=== PATIENT | male | born 1960 | race Caucasian/White ===

== ENCOUNTER 2016-12-07 06:16 | Inpatient (IN) | payer BC ==
[~2016-12-07] VITALS: Ht 180.3 cm; Wt 102.5 kg
[2016-12-07] VITALS (21 sets, daily range): BP systolic 116–163; BP diastolic 67–110; PULSE 16–122; RESP 18–20; TEMP 97.4–98; O2SAT 95–99
[2016-12-07] MEDS ORDERED: LEVO.075 PO (06:58)
[2016-12-07] MEDS ORDERED: SITA1TAB2 PO (06:58)
[2016-12-07] MEDS ORDERED: RAMI5CAP PO (06:58)
[2016-12-07] MEDS ORDERED: METF1000 PO ×2 (06:58)
[2016-12-07] MEDS ORDERED: ASPI325T PO (06:58)
[2016-12-07] MEDS ORDERED: SIMV40TA PO (06:58)
[2016-12-07] MEDS ORDERED: SODIUM CHLORIDE 0.9% FLUSH 10 ML FLUSH IVF PRN (07:00)
--- NOTE | 2016-12-07 07:00 | PD ---
HPI Chief Complaint: Respiratory Symptoms Time Seen by Provider: 06:54 Travel History International Travel<30 days: No Contact w/Intl Traveler<30days: No Traveled to known affect area: No History of Present Illness HPI The patient is a 56-year-old male with a history of coronary artery disease and is status post 5 way bypass 17 years ago who complains of shortness of breath and swelling in his feet. The shortness of breath began a week and a half ago and the swelling in the feet began yesterday. He has never had a history of DVT. He has never had swelling in his legs and feet before. He denies any chest discomfort. He denies any fever. His primary care physician, Dr. Anil Conteh put him on a Z-Darius for a lung infection. He denies any fever. [facility] Social History Tobacco Use: No Allergies-Medications (Allergen,Severity, Reaction): Coded Allergies: gentamicin (Verified Allergy, Intermediate, Hives, 12/07/16) Reported Meds & Prescriptions Reported Meds & Active Scripts Active Reported Metformin (Metformin HCl) 1,000 Mg Tab 1,500 Mg PO DAILY@1600 With a meal Metformin (Metformin HCl) 1,000 Mg Tab 1,000 Mg PO DAILY@0600 With a meal Synthroid (Levothyroxine Sodium) 75 Mcg Tab 75 Mcg PO DAILY Simvastatin 40 Mg Tab 40 Mg PO HS Januvia (Sitagliptin Phosphate) 100 Mg Tab 100 Mg PO DAILY Review of Systems Except as stated in HPI: all other systems reviewed are Neg Physical Exam Narrative GENERAL: The patient is alert, oriented 3 in minimal respiratory distress. SKIN: Focused skin assessment warm/dry. HEAD: Atraumatic. Normocephalic. EYES: Pupils equal and round. No scleral icterus. No injection or drainage. ENT: No nasal bleeding or discharge. Mucous membranes pink and moist. NECK: Trachea midline. No JVD. CARDIOVASCULAR: Regular rate and rhythm. No murmur appreciated. RESPIRATORY: No accessory muscle use. Clear to auscultation. Breath sounds equal bilaterally. GASTROINTESTINAL: Abdomen soft, non-tender, nondistended. Hepatic and splenic margins not palpable. MUSCULOSKELETAL: No obvious deformities. No clubbing. No cyanosis. No edema. NEUROLOGICAL: Awake and alert. No obvious cranial nerve deficits. Motor grossly within normal limits. Normal speech. PSYCHIATRIC: Appropriate mood and affect; insight and judgment normal. Data Data Last Documented VS Orders Orders Complete Blood Count With Diff (12/07/16 06:55) Comprehensive Metabolic Panel (12/07/16 06:55) B-Type Natriuretic Peptide (12/07/16 06:55) Magnesium (Mg) (12/07/16 06:55) Troponin I (12/07/16 06:55) Urinalysis - C+S If Indicated (12/07/16 06:55) Iv Access Insert/Monitor (12/07/16 06:55) Ecg Monitoring (12/07/16 06:55) Oximetry (12/07/16 06:55) Oxygen Administration (12/07/16 06:55) Chest, Pa & Lat (12/07/16 06:55) Sodium Chloride 0.9% Flush (Ns Flush) (12/07/16 07:00) Electrocardiogram (12/07/16 07:00) Furosemide Inj (Lasix Inj) (12/07/16 08:15) Admit Order (Ed Use Only) (12/07/16 08:28) Labs Laboratory Tests Test 12/07/16 07:06 12/07/16 07:09 White Blood Count 9.8 TH/MM3 Red Blood Count 5.05 MIL/MM3 Hemoglobin 17.1 GM/DL Hematocrit 49.8 % Mean Corpuscular Volume 98.6 FL Mean Corpuscular Hemoglobin 33.8 PG Mean Corpuscular Hemoglobin Concent 34.3 % Red Cell Distribution Width 13.3 % Platelet Count 250 TH/MM3 Mean Platelet Volume 8.6 FL Neutrophils (%) (Auto) 65.7 % Lymphocytes (%) (Auto) 18.0 % Monocytes (%) (Auto) 8.1 % Eosinophils (%) (Auto) 3.8 % Basophils (%) (Auto) 4.4 % Neutrophils # (Auto) 6.4 TH/MM3 Lymphocytes # (Auto) 1.8 TH/MM3 Monocytes # (Auto) 0.8 TH/MM3 Eosinophils # (Auto) 0.4 TH/MM3 Basophils # (Auto) 0.4 TH/MM3 CBC Comment DIFF FINAL Differential Comment Blood Urea Nitrogen 20 MG/DL Creatinine 1.20 MG/DL Random Glucose 311 MG/DL Total Protein 7.4 GM/DL Albumin 3.3 GM/DL Calcium Level 9.8 MG/DL Magnesium Level 1.5 MG/DL Alkaline Phosphatase 88 U/L Aspartate Amino Transf (AST/SGOT) 31 U/L Alanine Aminotransferase (ALT/SGPT) 62 U/L Total Bilirubin 0.7 MG/DL Sodium Level 137 MEQ/L Potassium Level 3.8 MEQ/L Chloride Level 101 MEQ/L Carbon Dioxide Level 25.9 MEQ/L Anion Gap 10 MEQ/L Estimat Glomerular Filtration Rate 63 ML/MIN Troponin I 0.37 NG/ML B-Type Natriuretic Peptide 481 PG/ML Urine Collection Type CLEAN CATCH Urine Color YELLOW Urine Turbidity CLEAR Urine pH 5.5 Urine Specific [place] 1.035 Urine Protein 100 mg/dL Urine Glucose (UA) 1000 OR GREATER mg/dL Urine Ketones TRACE mg/dL Urine Occult Blood TRACE Urine Nitrite NEG Urine Bilirubin NEG Urine Leukocyte Esterase NEG Urine RBC 0-3 /hpf Urine Squamous Epithelial Cells 0-5 /hpf Microscopic Urinalysis Comment CULT NOT INDICATED MDM Medical Decision Making Medical Screen Exam Complete: Yes Emergency Medical Condition: Yes Medical Record Reviewed: Yes Interpretation(s) EKG shows sinus tachycardia with marked right axis deviation, no acute ST elevation or depression is present. Differential Diagnosis Congestive heart failure, hypoproteinemia, pneumonia, bronchitis, electrolyte disorder, acute cardiac syndrome-unlikely, Narrative Course It is now 705 and the patient is transferred to Dr. Baig. Scripts Apixaban (Eliquis) 5 Mg Tab 5 MG PO BID for Prevent Blood Clot, #60 TAB Prov: Zacarias Shultz MD 12/10/16 Magnesium Oxide (Magnesium Oxide) 400 Mg Tab 400 MG PO Q12H for Electrolyte Replacement, #60 TAB Prov: Zacarias Shultz MD 12/10/16 Bumetanide (Bumetanide) 1 Mg Tab 1 MG PO BID@ for Prevent Heart Failure, #60 TAB Prov: Zacarias Shultz MD 12/10/16 Spironolactone (Aldactone) 50 Mg Tab 50 MG PO BID@,18 for Prevent Heart Failure, #60 TAB 3 Refills Prov: Zacarias Shultz MD 12/10/16 Sacubitril-Valsartan (Entresto) 49-51 Mg Tab 1 TAB PO BID for Prevent Heart Failure, #60 TAB 3 Refills Prov: Zacarias Shultz MD 12/10/16 Carvedilol (Coreg) 12.5 Mg Tab 25 MG PO Q12HR for Blood Pressure Management, #60 TAB Prov: Zacarias Shultz MD 12/10/16 Prasugrel (Effient) 10 Mg Tab 10 MG PO DAILY for Prevent Blood Clot, #30 TAB Prov: Zacarias Shultz MD 12/10/16 Darren Mayers MD Dec 07, 2016 07:00
[2016-12-07 07:15] LABS: AUTOMATED NEUTROPHIL # 6.4 TH/MM3 (1.8-7.7); BASOPHIL # 0.4 TH/MM3 (0-0.2); BASOPHIL % 4.4 % (0.0-2.0); EOSINOPHIL # 0.4 TH/MM3 (0-0.4); EOSINOPHIL % 3.8 % (0.0-4.0); HEMATOCRIT 49.8 % (39.0-51.0); HEMO FLAGS DIFF FINAL; LYMPHOCYTE # 1.8 TH/MM3 (1.0-4.8); MEAN CELL VOLUME 98.6 FL (80.0-100.0); MEAN CORPUSCULAR HEMOGLOBIN 33.8 PG (27.0-34.0); MEAN CORPUSCULAR HGB CONC 34.3 % (32.0-36.0); MONO % 8.1 % (0.0-8.0); NEUT % 65.7 % (16.0-70.0); PLATELET COUNT 250 TH/MM3 (150-450); RED BLOOD COUNT 5.05 MIL/MM3 (4.50-5.90); RED CELL DISTRIBUTION WIDTH 13.3 % (11.6-17.2); WHITE BLOOD COUNT 9.8 TH/MM3 (4.0-11.0)
[2016-12-07 07:20] LABS: BLOOD, URINE TRACE (NEG); GLUCOSE,URINE 1000 OR GREATER mg/dL (NEG); KETONE, URINE TRACE mg/dL (NEG); NITRITE,URINE NEG (NEG); PH, URINE 5.5 (5.0-8.5)
[2016-12-07 07:23] LABS: CHLORIDE 101 MEQ/L (98-107); POTASSIUM 3.8 MEQ/L (3.5-5.1); SODIUM (NA) 137 MEQ/L (136-145)
[2016-12-07 07:23] LABS: METHOD OF COLLECTION CLEAN CATCH; URINE COLOR YELLOW (YELLW/STRAW)
--- NOTE | 2016-12-07 07:24 | RADRPT ---
EXAM DATE/TIME: 12/07/2016 07:10 [facility] COMPARISON: No previous studies available for comparison. INDICATIONS : Shortness of breath x 1 week, lower extremity swelling since yesterday. MEDICAL HISTORY : Hypercholesterolemia. Hypertension Thyroid disease. Diabetic.CAD. SURGICAL HISTORY : CABG. ENCOUNTER: Initial ACUITY: 1 week PAIN SCORE: 0/10 LOCATION: chest FINDINGS: There are small bilateral pleural effusions, patchy alveolar and interstitial opacities identified. C ardiomegaly is noted and sternotomy wires are seen as well as mediastinal clips and CABG markers. The osseous structures are otherwise intact. CONCLUSION: Small bilateral pleural effusions and bilateral alveolar and interstitial infiltrates. Favian Balbuena MD on December 07, 2016 at 7:22 Board Certified Radiologist. This report was verified electronically.
[2016-12-07 07:25] LABS: COMMENT (UR) CULT NOT INDICATED; CULTURE IF INDICATED CULT NOT INDICATED; RBC, URINE 0-3 /hpf (0-3); SQUAMOUS EPITHELIAL CELL URINE 0-5 /hpf (0-5)
[2016-12-07 07:27] LABS: ANION GAP 10 MEQ/L (5-15); BICARBONATE 25.9 MEQ/L (21.0-32.0); BLOOD UREA NITROGEN 20 MG/DL (7-18); MAGNESIUM 1.5 MG/DL (1.5-2.5)
[2016-12-07 07:30] LABS: ALT (GPT) 62 U/L (12-78); AST (GOT) 31 U/L (15-37); GLOMERULAR FILTRATION RATE 63 ML/MIN (>89)
[2016-12-07 07:32] LABS: TOTAL BILIRUBIN ADULT 0.7 MG/DL (0.2-1.0)
[2016-12-07 07:33] LABS: ALKALINE PHOSPHATASE 88 U/L (45-117)
[2016-12-07] MEDS ORDERED: FUROSEMIDE 20 MG/2 ML VIAL IV PUSH ONE (08:15)
--- NOTE | 2016-12-07 08:31 | PD ---
Physical Exam Date Seen by Provider: Dec 07, 2016 Time Seen by Provider: 07:00 Narrative Patient signed out to me at [address] Mayers, please see his notes for further details. Currently awaiting workup for shortness of breath and leg swelling. Laboratory Tests Test 12/07/16 07:06 12/07/16 07:09 Hemoglobin 17.1 GM/DL (13.0-17.0) Monocytes (%) (Auto) 8.1 % (0.0-8.0) Basophils (%) (Auto) 4.4 % (0.0-2.0) Basophils # (Auto) 0.4 TH/MM3 (0-0.2) Blood Urea Nitrogen 20 MG/DL (7-18) Random Glucose 311 MG/DL (74-106) Albumin 3.3 GM/DL (3.4-5.0) Estimat Glomerular Filtration Rate 63 ML/MIN (>89) Troponin I 0.37 NG/ML (0.02-0.05) B-Type Natriuretic Peptide 481 PG/ML (0-100) Urine Protein 100 mg/dL (NEG-TRACE) Urine Glucose (UA) 1000 OR GREATER mg/dL Urine Ketones TRACE mg/dL (NEG) Last 24 hours Impressions Chest X-Ray 12/07/16 0655 Signed Impressions: Service Date/Time: Wednesday, December 07, 2016 07:10 - CONCLUSION: Small bilateral pleural effusions and bilateral alveolar and interstitial infiltrates. Favian Balbuena MD Chest x-ray shows bilateral interstitial infiltrates. BNP is elevated. Troponin is also mildly elevated. At this point, it appears he may have some new onset CHF. He is not currently complaining of chest pains but my plan would be to admit the patient for further workup and evaluation especially with elevated troponin. He was given Lasix in the ER. Case was discussed with Dr. Gates for admission. Data Data Last Documented VS Vital Signs Date Time Temp Pulse Resp B/P (MAP) Pulse Ox O2 Delivery O2 Flow Rate FiO2 12/07/16 08:10 122 18 151/106 (121) 98 Room Air 12/07/16 06:23 97.4 Orders Orders Complete Blood Count With Diff (12/07/16 06:55) Comprehensive Metabolic Panel (12/07/16 06:55) B-Type Natriuretic Peptide (12/07/16 06:55) Magnesium (Mg) (12/07/16 06:55) Troponin I (12/07/16 06:55) Urinalysis - C+S If Indicated (12/07/16 06:55) Iv Access Insert/Monitor (12/07/16 06:55) Ecg Monitoring (12/07/16 06:55) Oximetry (12/07/16 06:55) Oxygen Administration (12/07/16 06:55) Chest, Pa & Lat (12/07/16 06:55) Sodium Chloride 0.9% Flush (Ns Flush) (12/07/16 07:00) Electrocardiogram (12/07/16 07:00) Furosemide Inj (Lasix Inj) (12/07/16 08:15) Admit Order (Ed Use Only) (12/07/16 08:28) Labs Laboratory Tests Test 12/07/16 07:06 12/07/16 07:09 White Blood Count 9.8 TH/MM3 Red Blood Count 5.05 MIL/MM3 Hemoglobin 17.1 GM/DL Hematocrit 49.8 % Mean Corpuscular Volume 98.6 FL Mean Corpuscular Hemoglobin 33.8 PG Mean Corpuscular Hemoglobin Concent 34.3 % Red Cell Distribution Width 13.3 % Platelet Count 250 TH/MM3 Mean Platelet Volume 8.6 FL Neutrophils (%) (Auto) 65.7 % Lymphocytes (%) (Auto) 18.0 % Monocytes (%) (Auto) 8.1 % Eosinophils (%) (Auto) 3.8 % Basophils (%) (Auto) 4.4 % Neutrophils # (Auto) 6.4 TH/MM3 Lymphocytes # (Auto) 1.8 TH/MM3 Monocytes # (Auto) 0.8 TH/MM3 Eosinophils # (Auto) 0.4 TH/MM3 Basophils # (Auto) 0.4 TH/MM3 CBC Comment DIFF FINAL Differential Comment Blood Urea Nitrogen 20 MG/DL Creatinine 1.20 MG/DL Random Glucose 311 MG/DL Total Protein 7.4 GM/DL Albumin 3.3 GM/DL Calcium Level 9.8 MG/DL Magnesium Level 1.5 MG/DL Alkaline Phosphatase 88 U/L Aspartate Amino Transf (AST/SGOT) 31 U/L Alanine Aminotransferase (ALT/SGPT) 62 U/L Total Bilirubin 0.7 MG/DL Sodium Level 137 MEQ/L Potassium Level 3.8 MEQ/L Chloride Level 101 MEQ/L Carbon Dioxide Level 25.9 MEQ/L Anion Gap 10 MEQ/L Estimat Glomerular Filtration Rate 63 ML/MIN Troponin I 0.37 NG/ML B-Type Natriuretic Peptide 481 PG/ML Urine Collection Type CLEAN CATCH Urine Color YELLOW Urine Turbidity CLEAR Urine pH 5.5 Urine Specific [place] 1.035 Urine Protein 100 mg/dL Urine Glucose (UA) 1000 OR GREATER mg/dL Urine Ketones TRACE mg/dL Urine Occult Blood TRACE Urine Nitrite NEG Urine Bilirubin NEG Urine Leukocyte Esterase NEG Urine RBC 0-3 /hpf Urine Squamous Epithelial Cells 0-5 /hpf Microscopic Urinalysis Comment CULT NOT INDICATED MDM Medical Record Reviewed: Yes Supervised Visit with KEITH: No Diagnosis Primary Impression: CHF (congestive heart failure) Additional Impression: Elevated troponin Admitting Information Admitting Physician Requests: Poornima Ramirez MD Dec 07, 2016 08:31
[2016-12-07] MEDS ORDERED: ASPIRIN 325 MG TAB PO ONE (08:45)
[2016-12-07] MEDS ORDERED: NITROGLYCERIN 2% OINT 1 GM PACKET TOPICAL ONE (08:45)
[2016-12-07] MEDS ORDERED: SODIUM CHLORIDE 0.9% FLUSH 10 ML FLUSH IV FLUSH PRN (09:30)
[2016-12-07] MEDS ORDERED: NALOXONE HCL 0.4 MG/ML AMP IV PRN (09:30)
[2016-12-07] MEDS ORDERED: ONDANSETRON HCL 4 MG/2 ML VIAL IVP PRN (09:30)
[2016-12-07] MEDS ORDERED: ACETAMINOPHEN 325 MG TAB PO PRN ×2 (09:30→16:00)
--- NOTE | 2016-12-07 11:18 | RADRPT ---
EXAM DATE/TIME: 12/07/2016 10:32 [facility] COMPARISON: No previous studies available for comparison. INDICATIONS : Bilateral leg swelling. MEDICAL HISTORY : Hypercholesterolemia. Hypertension. Thyroid disease. Coronary artery disease. Diabetes. SURGICAL HISTORY : CABG ENCOUNTER: Initial ACUITY: 1 day PAIN SCORE: 10 LOCATION: Bilateral legs. TECHNIQUE: Venous ultrasound of the left and right leg was performed from the inguinal ligament to the proximal calf. Real-time, color Doppler and spectral tracing, compression and augmentation techniques were us ed. FINDINGS: RIGHT LEG: There is normal compressibility of the deep venous system from the inguinal region to the proximal ca lf. No echogenic clot is seen in the lumen of the common femoral, femoral, popliteal, and posterior tibial veins. There is a normal response of the venous system to proximal and distal augmentation an d respiration. LEFT LEG: There is normal compressibility of the deep venous system from the inguinal region to the proximal ca lf. No echogenic clot is seen in the lumen of the common femoral, femoral, popliteal, and posterior tibial veins. There is a normal response of the venous system to proximal and distal augmentation an d respiration. CONCLUSION: Normal examination. Favian Balbuena MD on December 07, 2016 at 11:15 Board Certified Radiologist. This report was verified electronically.
[2016-12-07] MEDS ORDERED: HEPARIN-NS/PF INJ 1,000 ML ONE (12:38)
[2016-12-07] MEDS ORDERED: IOHEXOL 350 MG/ML 100 ML BTL (for Cath Lab) OTHER ONE (13:02)
[2016-12-07] MEDS ORDERED: MIDAZOLAM HCL 2 MG/2 ML VIAL ONE (13:22)
[2016-12-07] MEDS ORDERED: FUROSEMIDE 40 MG/4 ML VIAL ONE (13:37)
[2016-12-07] MEDS ORDERED: DILTIAZEM HCL 25 MG/5 ML (Bolus) IV PUSH ONE (13:45)
[2016-12-07] MEDS ORDERED: HEPARIN SODIUM - IV 10,000 UNITS/10 ML VIAL ONE ×2 (13:48→14:05)
[2016-12-07] MEDS ORDERED: DILTIAZEM 125 MG/NS 100 ML IV PRN ×2 (14:00)
[2016-12-07] MEDS ORDERED: PRASUGREL 10 MG TAB ONE ×2 (14:01→14:09)
[2016-12-07] MEDS ORDERED: TIROFIBAN INFUSION INJ 250 ML IV ONE (14:02)
[2016-12-07] MEDS ORDERED: TIROFIBAN INFUSION INJ 250 ML IV SCH (14:14)
[2016-12-07] MEDS ORDERED: SODIUM CHLORIDE 0.9% FLUSH 10 ML FLUSH PRN (14:15)
[2016-12-07] MEDS ORDERED: BACITRACIN OINT 0.9 GM PKT TOP ONE (14:15)
[2016-12-07] MEDS ORDERED: PRASUGREL 10 MG TAB PO ONE (14:15)
[2016-12-07] MEDS ORDERED: MISC INFORMATION XX ONE (14:15)
[2016-12-07] MEDS ORDERED: DIGOXIN 0.5 MG/2 ML VIAL ONE (14:18)
[2016-12-07] MEDS ORDERED: DIGOXIN 0.5 MG/2 ML VIAL IV PUSH ONE (14:30)
--- NOTE | 2016-12-07 14:32 | CATHPROC ---
Doutíssima HIS Report Study Information Study Number Admission Scheduled Start Study Start [id number] Dec 07 2016 8:29AM 12/07/2016 Dec 07 2016 12:49PM Superior Service Cardiac Catheterization Admit Source Facility Department Emergency department [facility] - [facility] Physician and Clinical Staff Initial Kaleb Andrade Carpet Sewer Michelle Soria,ORLIN Carpet Sewer Clarisa Campoverde,ORLIN Recorder Dougie Osman,RT(R) Scrub Rl Mcbride RCIS(BS) Procedures Performed Procedure Location (Site) Vessel Name Coronary Angiograms LCA Left Coronary Coronary Angiograms RCA Right Coronary Coronary Angiograms KOVACS-LAD Left Coronary Coronary Angiograms SVG-DIAG Left Coronary Coronary Angiograms SVG-OM CIRC Coronary Angiograms Gft. Stump 1 SVG Graft LV Gram-hand inj. LV LV Ventricle Stent CIRC Mid CIRC Wire insertion Fem Art (right) Femoral Art Equipment Time Rehab Assistant Description Size Mfg Part Number Used/Scraped [id number] 13:52 Davia CRITICAL CARE WIRE, GPB Scientific PROWATER 180CM 180CM Used *[id number] CATHETER, FR5 SWAN BRITTANY 12:54 ELLIS RODAS FR 5 [id number] *[id number] Used MONITOR TRANSDUCER, TRUWAVE [id number] 12:54 ELLIS RODAS * Used W/STOCKCOCK *[id number] 538-420 *[id number] 538-421 *[id number] *[id number] 12:54 Ignyta INDUSTRIES PACK, CCL CUSTOM * Used *[id number] 12:54 Ignyta PACER PEN, SKIN DUAL W/ RULER * Used *[id number] 13:53 MEDTRONIC STENT, 3.0 9 INTEGRITY 3.0 9 Used *[id number] 14:00 3Nod 30 LENARD INDEFLATOR Used *[id number] PSI-4F- 12:50 Surprise Ride MEDICAL SHEATH, FR4.5 PRELUDE 11CM FR 4.5 Used 035ACT PSI-5F- 12:54 Surprise Ride MEDICAL SHEATH, FR5.5 PRELUDE 11CM FR 5.5 Used 038ACT# PSI-6F- 13:51 Surprise Ride MEDICAL SHEATH, FR6.5 PRELUDE 11CM FR 6.5 038ACT Used *[id number] 12:54 3Nod WIRE, 3MMJ .035 180CM 180CM Used *[id number] 12:54 NAMIC MANIFOLD, 4 PORT * Used *[id number] 12:54 NYCOMED OMNIPAQUE, 350 MG, 150ML 150ML [id number] Used [id number] 12:54 ROMERO MEDICAL BLANKET,WARM AIR CCL * Used *[id number] Equipment Model, Serial, Lot Number and Expiration Data Description Model Number Serial Number Lot Number Expiration Date STENT, 3.0 9 INTEGRITY [id number] 07-01-2018 History: Allergies Allergy Reaction gentamicin Hives History: Risk Factors Family History of Hypertension Dyslipidemia Previous ID Previous Heart Failure Premature CAD Yes Yes No No No Prior Valve Prior PCI Prior CABG Prior CABGDate Surgery No No Yes 12/04/2000 Cerebrovascular Peripheral Artery Chronic Lung On Dialysis Diabetes Diabetes Therapy Disease Disease Disease No No No No Yes Oral History: Symptoms/Diagnosis Selection Items Chest pain History: CV Disease Selection Items Known CAD History: Stress Tests Stress or Imaging Studies Performed No History: Other Disease Selection Items CAD HTN History: Other Current Smoker Method Quit Packs a Day Years Used Pack Years No Cigarettes 20 Years Ago 1 15 15 Labs Hgb (g/dl) Hct (%) RBC (MIL/MM3) WBC (l/cumm) Platelets (thousands) 11.60-17.00 35.00-51.00 4.00-5.90 4.00-11.00 150.00-450.00 17.1 49.8 5 9.8 250 Glucose (mg/dl) BUN (mg/dl) Creatinine (mg/dl) BUN:Creatinine (1:x) 74.00-106.00 7.00-18.00 0.50-1.30 10.00-20.00 311 20 1.2 16.7 Na (meq/l) K (meq/l) Cl (meq/l) CO2 (mmol/L) Ca (mg/dl) 136.00-145.00 3.50-5.10 98.00-107.00 21.00-32.00 8.50-10.10 137 3.8 101 25.9 9.8 Troponin I (ng/ml) CPK-MB (ng/ML) 0.02-0.05 0.50-3.60 0.37 Not Drawn Medication Medication Total Dose (Bolus/Oral) Medication Total Dosage/Unit 1% XYLOCAINE 20 mL AGGRASTAT BOLUS 50 meq/kg DIGOXIN 0.5 mcg HEPARIN 9000 units LASIX 40 mg NITRO OINTMENT 1 inches Medications (Bolus/Oral) Medication Time Given Dosage/Unit Administered By Reason NITRO OINTMENT 12/07/2016 1:09:28 PM 1 inches Patient arrived on 1 inches NITRO OINTMENT in Right shoulder via Peripheral IV. 1% XYLOCAINE 12/07/2016 1:26:55 PM 20 mL Kaleb Foreman Patient arrived on 20 mL 1% XYLOCAINE given by Kaleb Foreman in Right Groin via Subcutaneous. Orde red by Kaleb Foreman. LASIX 12/07/2016 1:38:56 PM 40 mg Michelle Soria Patient arrived on 40 mg LASIX given by Michelle Soria RN in Right Antecubital via Peripheral IV. Or dered by Kaleb Foreman. HEPARIN 12/07/2016 1:51:02 PM 7000 units Michelle Soria Patient arrived on 7000 units HEPARIN given by Michelle Soria RN in Right Antecubital via Peripheral IV. Ordered by Kaleb Foreman. HEPARIN 12/07/2016 2:06:02 PM 2000 units Michelle Soria 2000 units HEPARIN given in lab by Michelle Soria RN in Right Antecubital via Peripheral IV. AGGRASTAT BOLUS 12/07/2016 2:14:45 PM 50 meq/kg Michelle Soria 50 meq/kg AGGRASTAT BOLUS given in lab by Michelle Soria RN in Right Antecubital via Peripheral IV. Amount given = 4950 meq. DIGOXIN 12/07/2016 2:20:38 PM 0.5 mcg Michelle Soria 0.5 mcg DIGOXIN given in lab by Michelle Soria RN in Right Antecubital via Peripheral IV. Medication (Drip) Medication Time Given Dosage/Unit Concentration/Unit Diluent (ml) Solutio n AGGRASTAT DRIP 12/07/2016 2:18:19 PM 0.15 mcg/kg/min 12.5 mg 250 NaCl .9 0.15 mcg/kg/min AGGRASTAT DRIP given in lab by Michelle Soria RN in Right Antecubital via Peripheral IV. Pump/Drip Flow = 17.82 ml/hr using NaCl .9 with a concentration of 12.5 mg in 250 ml. CARDIZEM 12/07/2016 1:20:37 PM 10 mg Patient arrived on 10 mg CARDIZEM given by Michelle Soria RN in Right Antecubital via Peripheral IV. Ordered by Kaleb Foreman. IV Solutions 12/07/2016 1:08:53 PM 0 mL (IV) 1000 NaCl .9 Patient arrived on IV Solutions in Right Antecubital via Peripheral IV. Pump/Drip Flow = 20 ml/hr usi ng NaCl .9. Initial Case Assessment Cardiovascular HR Rhythm NIBP Chest Pain 130 Sinus 132/104 0 Edema Present Skin color Skin Moderate Normal Warm Dry Circulatory - Right Pulses Dorsalis Pedis Femoral d 2 Scale (0,1,2,3,4,d) Circulatory - Left Pulses Dorsalis Pedis Femoral d 2 Scale (0,1,2,3,4,d) Neurological State Oriented to time-place- Alert Moves all extremities person Respiration - General Respiration Rate SpO2 (%) O2 (lpm) (B/min) 20 97 0 Final Case Assessment Final Case Assessment Cardiovascular HR Rhythm NIBP Chest Pain 103 sinus 131/86 0 Edema Present Skin color Skin None Normal Warm Dry Circulatory - Right Pulses Dorsalis Pedis Femoral d 2 Scale (0,1,2,3,4,d) Circulatory - Left Pulses Dorsalis Pedis Femoral d 2 Scale (0,1,2,3,4,d) Neurological State Oriented to time-place- Alert Moves all extremities person Respiration - General Respiration Rate SpO2 (%) O2 (lpm) (B/min) 19 93 0 Chronological Log Time Study Chronological Log 13:02:58 Patient arrived via Bed. 13:08:03 Patient Name, D.O.B, / Armband Verified By R.N. 13:08:03 Consent signed by the physician and the patient and verified by the [employer] staff. 13:08:04 Pre-op and post- op instructions given; patient acknowledges understanding of instructions. 13:08:05 Verbal Stimulation=2 Physical Stimulation=2 Airway=2 Respiration=2 TOTAL=8. (0=absent, 1=li mited, 2=present) 13:08:20 Presedation assessment performed by Motorcycle Fabricator RN. 13:08:26 Patient has been NPO for More than 6Hrs. 13:08:26 Skin Breakdown- none per patient. 13:08:36 Patient Warmer Placed on the Table. 13:08:42 Adriana Prominences Protected 13:08:44 A # 20 IV was noted in the Antecubital (right). Grade = 0 13:08:53 Patient arrived on IV Solutions in Right Antecubital via Peripheral IV. Pump/Drip Flow = 20 ml/hr using NaCl .9. 13:09:24 History and physical on the chart or being dictated. Assessment: Initial Case, UC=290 BPM, Rhythm=Sinus, NFES=300/104 mmhg, Chest Pain=0, Edema=Mod, Color=Normal, Skin = Warm, Dry Right Pulses: David Ped=d, Femoral=2 13:09:25 Left Pulses: David Ped=d, Femoral=2 Neurological: State=Alert, Ox3, VARMA Respiration: Resp=20 B/min, SpO2=97 %, O2=0 lpm Vitals capture started with the following parameters, Patient=Adult, Interval=5 min, Initial Pr ytpbcg=945 mmHg, 13:09:26 Deflation Rate=5 mmHg, Cuff placed on Left Arm 13:09:28 Patient arrived on 1 inches NITRO OINTMENT in Right shoulder via Peripheral IV. 13:09:53 JH=383 bpm, EMRM=172/104 mmhg, SpO2=96.0 %, Resp=1 B/min, Pain=0, Canelo=10, Elizondo=2 13:14:54 KE=068 bpm, WRVK=214/122 mmhg, SpO2=97.0 %, Resp=17 B/min, Pain=0, Canelo=10, Elizondo=2 13:17:22 Reference ECG taken 13:19:57 TF=503 bpm, AYGM=596/101 mmhg, SpO2=96.0 %, Resp=21 B/min, Pain=0, Canelo=10, Elizondo=2 Patient arrived on 10 mg CARDIZEM given by Michelle Soria RN in Right Antecubital via Peripher al IV. Ordered by 13:20:37 Kaleb Foreman. 13:21:14 Bilateral groins prepped with 2% chlorhexidine, and with a 3 min. waiting time. 13:21:54 MD paged 13:23:08 MD arrived. 13:24:58 HG=065 bpm, EUVH=895/100 mmhg, SpO2=96.0 %, Resp=24 B/min, Pain=0, Canelo=10, Elizondo=2 Time Out. Correct patient, correct procedure,correct physician, power injector loaded loaded wi th contrast with surgical 13:26:20 team present. Time Out Concurred by , individual staff in procedure 13:26:53 Case Start Patient arrived on 20 mL 1% XYLOCAINE given by Kaleb Foreman in Right Groin via Subcutaneous . Ordered by 13:26:55 Kaleb Foreman. 13:27:09 Access site was Right Femoral Artery. 13:27:17 A SHEATH, FR4.5 PRELUDE 11CM FR 4.5 was advanced into the Fem Art (right) using the Percuta neous technique. 13:28:11 Pressure channel 1 zeroed. 13:29:00 Access site was Right Femoral Vein. 13:29:39 A SHEATH, FR5.5 PRELUDE 11CM FR 5.5 was advanced into the Fem Art (right) using the Percuta neous technique. 13:29:55 VK=792 bpm, LKJA=205/96 mmhg, SpO2=95.0 %, Resp=19 B/min, Pain=0, Canelo=10, Elizondo=2 13:31:35 A CATHETER, FR5 SWAN BRITTANY MONITOR FR 5 was inserted via Fem Vein (right) Recorded Pressure: PCW, YG=186, Condition=Condition 1 13:32:28 (Pulmonary Capillary Wedge) PCW 36/37/31 Recorded Pressure: MPA, EH=391, Condition=Condition 1 13:32:43 (Main Pulmonary Artery) MPA 53/20/38 13:33:19 Saturation: Site=PA (Pulmonary Artery) , O2=74 %, Hgb=17.1 gm/dl, Condition=Condition 1. Us ed in calculation. Recorded Pressure: RV, UQ=928, Condition=Condition 1 13:34:00 (Right Ventricle) RV 49/12/18 Recorded Pressure: RA, ZS=184, Condition=Condition 1 13:34:46 (Right Atrium) RA 13:34:59 YZ=198 bpm, KGUN=181/94 mmhg, SpO2=95.0 %, Resp=19 B/min, Pain=0, Canelo=10, Elizondo=2 13:35:40 Saturation: Site=RA (Right Atrium) , O2=75.6 %, Hgb=17.1 gm/dl, Condition=Condition 1. Used in calculation. 13:35:52 [place] Brittany Catheter Removed A JR 4.0 INFINITI CATHETER FR 4 was advanced over a wire. OMNIPAQUE, 350 MG, 150ML 150ML was us ed for 13:36:37 injections. Recorded Pressure: LV, VT=377, Condition=Condition 1 13:37:10 (Left Ventricle) LV 124/18/33 13:37:33 The LV was manually injected with 8 cc's and visualized. OMNIPAQUE, 350 MG, 150ML 150ML use d. Recorded Pressure: LV, Ao, UR=598, Condition=Condition 1 13:37:39 (Left Ventricle) LV 131/19/34, (Aorta) Ao 133/93/112 13:37:52 Saturation: Site=FA (Femoral Artery) , O2=97 %, Hgb=17.1 gm/dl, Condition=Condition 1. Used in calculation. 13:38:05 The RCA was injected and visualized at various angles. OMNIPAQUE, 350 MG, 150ML 150ML used . 13:38:27 The SVG-OM was injected and visualized at various angles. OMNIPAQUE, 350 MG, 150ML 150ML us ed. Patient arrived on 40 mg LASIX given by Michelle Soria RN in Right Antecubital via Peripheral IV. Ordered by 13:38:56 Kaleb Foreman. 13:39:45 The Gft. Stump 1 was injected and visualized at various angles. OMNIPAQUE, 350 MG, 150ML 15 0ML used. 13:40:32 AL=542 bpm, VERP=178/102 mmhg, Resp=20 B/min, Pain=0, Canelo=10, Elizondo=2 13:41:47 The SVG-DIAG was injected and visualized at various angles. OMNIPAQUE, 350 MG, 150ML 150ML used. 13:44:24 The KOVACS-LAD was injected and visualized at various angles. OMNIPAQUE, 350 MG, 150ML 150ML used. 13:45:29 CH=366 bpm, EWIP=008/102 mmhg, SpO2=93.0 %, Resp=19 B/min, Pain=0, Canelo=10, Elizondo=2 13:45:54 The LV was manually injected with 6 cc's and visualized. OMNIPAQUE, 350 MG, 150ML 150ML use d. After removing the current catheter a JL 4.0 INFINITI CATHETER FR 4 was advanced over a WIRE, 3 MMJ .035 180CM 13:46:34 180CM. 13:47:35 The LCA was injected and visualized at various angles. OMNIPAQUE, 350 MG, 150ML 150ML used . 13:49:07 Catheter was removed 13:49:58 BK=486 bpm, THHF=048/107 mmhg, SpO2=93.0 %, Resp=26 B/min, Pain=0, Canelo=10, Elizondo=2 A SHEATH, FR6.5 PRELUDE 11CM FR 6.5 was exchanged in the Fem Art (right). This was necessary in order to 13:50:06 accomodate a larger catheter. Patient arrived on 7000 units HEPARIN given by Michelle Soria, ORLIN in Right Antecubital via Dilma pheral IV. Ordered by 13:51:02 Kaleb Foreman. A XB 4.0 GUIDE CATHETER FR 6 was advanced over a wire. OMNIPAQUE, 350 MG, 150ML 150ML was used for 13:53:27 injections. 13:54:59 SL=471 bpm, UFYJ=471/94 mmhg, SpO2=92.0 %, Resp=18 B/min, Pain=0, Canelo=10, Elizondo=2 13:55:31 A WIRE, ASACask PROWATER 180CM 180CM was inserted via Fem Art (right). 13:58:32 Activated Clotting Time Drawn An STENT, 3.0 9 INTEGRITY 3.0 9 Bare Metal Stent was inserted through a XB 4.0 GUIDE CATHETER F R 6 over a 13:59:27 WIRE, ASAHI PROWATER 180CM 180CM. 13:59:44 Cartizem increased to 10mg 13:59:58 PN=529 bpm, GZMR=281/85 mmhg, SpO2=92.0 %, Resp=18 B/min, Pain=0, Canelo=10, Elizondo=2 A STENT, 3.0 9 INTEGRITY 3.0 9 was deployed using a 30 LENARD INDEFLATOR at 14 atmospheres for 30 seconds in the 14:00:02 CIRC Mid. 14:01:36 Delivery device removed 14:01:52 Wire removed 14:01:55 Catheter was removed 14:02:22 Case End 14:02:57 No case complications noted. 14:02:59 Cine recording checked. 14:03:42 Bedside Report will be given. 14:03:47 A Left and Right Heart Cath was performed. 14:03:53 Assessment: Final Case 14:03:58 In the Fem Art (right) the SHEATH, FR6.5 PRELUDE 11CM FR 6.[address] by Rl Mcbride RCIS(BS). 14:04:13 In the Fem Art (right) the SHEATH, FR5.5 PRELUDE 11CM FR 5.[address] by Rl Mcbride RCIS(BS). 14:04:54 ACT (Normal Range 90-180) = 199 14:04:59 GG=118 bpm, EILD=677/92 mmhg, SpO2=93.0 %, Resp=22 B/min, Pain=0, Canelo=10, Elizondo=2 14:06:02 2000 units HEPARIN given in lab by Michelle Soria RN in Right Antecubital via Peripheral I V. 14:10:02 HR=96 bpm, AYRR=131/101 mmhg, SpO2=92.0 %, Resp=16 B/min, Pain=0, Canelo=10, Elizondo=2 50 meq/kg AGGRASTAT BOLUS given in lab by Michelle Soria, ORLIN in Right Antecubital via Periphera l IV. Amount given 14:14:45 = 4950 meq. 14:15:48 MI=546 bpm, ETHW=505/86 mmhg, SpO2=92.0 %, Resp=20 B/min, Pain=0, Canelo=10, Elizondo=2 14:16:07 Activated Clotting Time Drawn Assessment: Final Case, HH=443 BPM, Rhythm=sinus, QXTY=923/86 mmhg, Chest Pain=0, Edema=None, Color=Normal, Skin = Warm, Dry Right Pulses: David Ped=d, Femoral=2 14:16:20 Left Pulses: David Ped=d, Femoral=2 Neurological: State=Alert, Ox3, VARMA Respiration: Resp=19 B/min, SpO2=93 %, O2=0 lpm 14:17:06 Sterile dressing applied to site 0.15 mcg/kg/min AGGRASTAT DRIP given in lab by Michelle Soria, RN in Right Antecubital via Per ipheral IV. 14:18:19 Pump/Drip Flow = 17.82 ml/hr using NaCl .9 with a concentration of 12.5 mg in 250 ml. 14:19:58 DL=890 bpm, VOQJ=587/92 mmhg, SpO2=92.0 %, Resp=21 B/min, Pain=0, Canelo=10, Elizondo=2 14:20:38 0.5 mcg DIGOXIN given in lab by Michelle Soria, RN in Right Antecubital via Peripheral IV. 14:22:28 ACT (Normal Range 90-180) = 251 14:24:06 Vitals capture stopped. End Study - Contrast Media Used In Study Contrast Total Opened (mL) Total Used (mL) Total Wasted (mL) Omnipaque 150 90 60 End Study - Maximum Contrast Load Max Contrast Load (mL) 412.5 End Study - Radiation Exposure Fluoro Time (minutes) 9.3 End Study - Patient Disposition Complications Transferred To Interventional Outcome No Telemetry Bed successful
--- NOTE | 2016-12-07 15:34 | MB ---
cc: MARIBEL CHRIS M.D. DATE OF CONSULTATION: 12/07/2016 HISTORY OF PRESENT ILLNESS Trace is a very pleasant 56-year-old gentleman with history of coronary artery disease status [place] [address] [place]. Also diabetes mellitus, history of cardiomyopathy as well. He presented to the ER with chief complaint of shortness of breath, orthopnea, lower extremity edema and a coughing sensation that was dry and nonproductive. He otherwise denies any fever, chills, GI, bleeding, PND, syncope. PAST MEDICAL HISTORY Per history of present illness. ALLERGIES GENTAMICIN. MEDICATIONS Prior to admission: 1. Aspirin 325 daily. 2. Metformin 1000 b.i.d. 3. Synthroid 75 mcg daily. 4. Simvastatin 40 mg at bedtime. 5. Ramipril 5 mg daily. 6. Januvia 100 mg daily. Medications in the hospital: 1. Bumex 1 mg IV b.i.d. 2. Cardizem drip. 3. He received aspirin 325 in the ER also 4. 20 mg of IV Lasix 5. 1 inch of nitro paste x1. PHYSICAL EXAMINATION VITAL SIGNS: Blood pressure initially 163/110, pulse 115, respiratory rate 18, temperature 97.7. GENERAL: He is alert and oriented x 3, in no acute distress. NECK: Supple. No JVD or bruit. CARDIOVASCULAR: S1, S2. No murmurs, rubs or gallops. LUNGS: Decreased air movement at the bases bilaterally. ABDOMEN: Soft, nontender, nondistended with positive bowel sounds. EXTREMITIES: 1-2+ lower extremity edema. LABORATORY DATA White count 9.8, hemoglobin 17.1, hematocrit 29.8, platelet count 250. Sodium 137, potassium 3.8, chloride 101, bicarb 25.9, BUN 20, creatinine 1.20, glucose 311. LFTs normal. Troponin 0.37. BNP 481, albumin 3.3. Urine glucose is greater than 1000. IMAGING STUDIES His chest x-ray shows small bilateral pleural effusions, bilateral alveolar and interstitial infiltrates. Lower extremity ultrasound is normal examination. EKG Initial EKG done at 07:00 a.m. today shows sinus tachycardia at 116 beats per minute, rightward axis. DIAGNOSES 1. Non-STEMI. 2. Decompensated congestive heart failure. 3. Cardiomyopathy. 4. Coronary disease. 5. Status post CABG. 6. Diabetes mellitus. 7. Atrial fibrillation with rapid ventricular response. 8. Hyperglycemia. 9. Polycythemia with hemoglobin 17.1. DISCUSSION At this point in time the patient has a very high-risk presentation with a 17 year old bypass graft, decompensated congestive heart failure, elevated troponin, non-STEMI, and history of diabetes. Therefore, I do think it is medically necessary to perform urgent left heart catheterization and right heart catheterization. The patient is being transferred from [facility] for urgent left heart catheterization. Discussed in detail with Dr. Edgar. MD AMY Madden/TLCarrol /2:09 PM /3:17 PM
--- NOTE | 2016-12-07 15:36 | HHI.HP ---
[facility]PI [facility] Anil Conteh MD Admission Diagnosis new onset CHF/elevated troponin Diagnoses: (1) Dyspnea (2) Atrial fibrillation with RVR (3) Acute decompensated heart failure (4) Non-ST elevation [place] (NSTEMI) Chief Complaint: Shortness of breath and Bilateral lower extremity edema Travel History International Travel<30 Days: No Contact w/Intl Traveler <30 Da: No Traveled to Known Affected Are: No History of Present Illness 56-year-old male with a history of CAD, status post CABG in 2001 the emergency department for evaluation of worsening abdominal pain and acute onset of bilateral lower extremity edema overnight. Patient states for a week has been having epigastric pain along with some shortness of breath associated sometimes with chest pain, for which she was seen by his PCP and was prescribed Z-Darius which patient completed on Wednesday. However last night patient has bilateral lower extremity edema along with severe shortness of breath. He denies any GI bleed. In ED patient was found to have elevated troponin I for which cardiology was consulted and he underwent emergent left heart catheterization Review of Systems Except as stated in HPI: all other systems reviewed are Neg Past Family Social History Past Medical History Diabetes type 2 Coronary artery disease Hypertension Hyperlipidemia Past Surgical History CABG x 5 in 1999 Tonsillectomy Vasectomy Reported Medications Aspirin 325 Mg Tab 325 Mg PO DAILY Metformin (Metformin HCl) 1,000 Mg Tab 1,500 Mg PO DAILY@1600 With a meal Metformin (Metformin HCl) 1,000 Mg Tab 1,000 Mg PO DAILY@0600 With a meal Synthroid (Levothyroxine Sodium) 75 Mcg Tab 75 Mcg PO DAILY Simvastatin 40 Mg Tab 40 Mg PO HS Ramipril 5 Mg Cap 5 Mg PO DAILY Januvia (Sitagliptin Phosphate) 100 Mg Tab 100 Mg PO DAILY Allergies: Coded Allergies: gentamicin (Verified Allergy, Intermediate, Hives, 12/07/16) Family History Mother has a history of hypertension, hyperlipidemia Father from complication of CVA at age 59 Social History he denies tobacco, alcohol or illicit drug intake Physical Exam Vital Signs Vital Signs Date Time Temp Pulse Resp B/P (MAP) Pulse Ox O2 Delivery O2 Flow Rate FiO2 9/4/17 11:42 12/07/16 11:00 97.7 116 20 140/94 (109) 98 12/07/16 10:46 99 Room Air 12/07/16 09:56 112 18 138/88 (105) 99 Room Air 12/07/16 09:13 112 18 142/93 (109) 97 12/07/16 08:52 115 18 163/110 (127) 97 12/07/16 08:10 122 18 151/106 (121) 98 Room Air 12/07/16 07:01 18 97 Room Air 12/07/16 07:01 97 Room Air 12/07/16 07:01 101 18 97 Room Air 12/07/16 06:58 97 12/07/16 06:23 97.4 116 20 160/107 (124) 97 Physical Exam GENERAL: This is a well-nourished, well-developed patient, in no apparent distress. SKIN: No rashes, ecchymoses or lesions. Cool and dry. HEAD: Atraumatic. Normocephalic. No temporal or scalp tenderness. EYES: Pupils equal round and reactive. Extraocular motions intact. No scleral icterus. No injection or drainage. ENT: Nose without bleeding, purulent drainage or septal hematoma. Throat without erythema, tonsillar hypertrophy or exudate. Uvula midline. Airway patent. NECK: Trachea midline. No JVD or lymphadenopathy. Supple, nontender, no meningeal signs. CARDIOVASCULAR: Regular rate and rhythm without murmurs, gallops, or rubs. RESPIRATORY: Clear to auscultation. Breath sounds equal bilaterally. No wheezes , rales, or rhonchi. GASTROINTESTINAL: Abdomen soft, non-tender, nondistended. No hepato-splenomegaly , or palpable masses. No guarding. MUSCULOSKELETAL: Extremities without clubbing, cyanosis, or edema. No joint tenderness, effusion, or edema noted. No calf tenderness. Negative Homans sign bilaterally. NEUROLOGICAL: Awake and alert. Cranial nerves II through XII intact. Motor and sensory grossly within normal limits. Five out of 5 muscle strength in all muscle groups. Normal speech. Laboratory Laboratory Tests Test 12/07/16 07:06 12/07/16 07:09 White Blood Count 9.8 Red Blood Count 5.05 Hemoglobin 17.1 Hematocrit 49.8 Mean Corpuscular Volume 98.6 Mean Corpuscular Hemoglobin 33.8 Mean Corpuscular Hemoglobin Concent 34.3 Red Cell Distribution Width 13.3 Platelet Count 250 Mean Platelet Volume 8.6 Neutrophils (%) (Auto) 65.7 Lymphocytes (%) (Auto) 18.0 Monocytes (%) (Auto) 8.1 Eosinophils (%) (Auto) 3.8 Basophils (%) (Auto) 4.4 Neutrophils # (Auto) 6.4 Lymphocytes # (Auto) 1.8 Monocytes # (Auto) 0.8 Eosinophils # (Auto) 0.4 Basophils # (Auto) 0.4 CBC Comment DIFF FINAL Differential Comment Blood Urea Nitrogen 20 Creatinine 1.20 Random Glucose 311 Total Protein 7.4 Albumin 3.3 Calcium Level 9.8 Magnesium Level 1.5 Alkaline Phosphatase 88 Aspartate Amino Transf (AST/SGOT) 31 Alanine Aminotransferase (ALT/SGPT) 62 Total Bilirubin 0.7 Sodium Level 137 Potassium Level 3.8 Chloride Level 101 Carbon Dioxide Level 25.9 Anion Gap 10 Estimat Glomerular Filtration Rate 63 Troponin I 0.37 B-Type Natriuretic Peptide 481 Urine Collection Type CLEAN CATCH Urine Color YELLOW Urine Turbidity CLEAR Urine pH 5.5 Urine Specific [place] 1.035 Urine Protein 100 Urine Glucose (UA) 1000 OR GREATER Urine Ketones TRACE Urine Occult Blood TRACE Urine Nitrite NEG Urine Bilirubin NEG Urine Leukocyte Esterase NEG Urine RBC 0-3 Urine Squamous Epithelial Cells 0-5 Microscopic Urinalysis Comment CULT NOT INDICATED Result Diagram: 12/07/16 0706 12/07/16 0706 Imaging Last Impressions Lower Extremity Ultrasound 12/07/16 0831 Signed Impressions: Service Date/Time: Wednesday, December 07, 2016 10:32 - CONCLUSION: Normal examination. Favian Balbuena MD Chest X-Ray 12/07/16 0655 Signed Impressions: Service Date/Time: Wednesday, December 07, 2016 07:10 - CONCLUSION: Small bilateral pleural effusions and bilateral alveolar and interstitial infiltrates. Favian Balbuena MD Caprini VTE Risk Assessment Caprini VTE Risk Assessment: Mod/High Risk (score >= 2) Caprini Risk Assessment Model Point Value = 1 Point Value = 2 Point Value = 3 Point Value = 5 Age 41-60 Minor surgery BMI > 25 kg/m2 Swollen legs Varicose veins or History of unexplained or recurrent spontaneous Oral contraceptives or hormone replacement Sepsis (< 1 month) Serious lung disease, including pneumonia (< 1 month) Abnormal pulmonary function Acute myocardial infarction Congestive heart failure (< 1 month) History of inflammatory bowel disease Medical patient at bed rest Age 61-74 Arthroscopic surgery Major open surgery (> 45 min) Laparoscopic surgery (> 45 min) Malignancy Confined to bed (> 72 hours) Immobilizing plaster cast Central venous access Age >= 75 History of VTE Family history of VTE Factor V Leiden Prothrombin [id number] Lupus anticoagulant Anticardiolipin antibodies Elevated serum homocysteine Heparin-induced thrombocytopenia Other congenital or acquired thrombophilia Stroke (< 1 month) Elective arthroplasty Hip, pelvis, or leg fracture Acute spinal cord injury (< 1 month) Prophylaxis Regimen Total Risk Factor Score Risk Level Prophylaxis Regimen 0-1 Low Early ambulation 2 Moderate Order ONE of the following: *Sequential Compression Device (SCD) *Heparin 5000 units SQ BID 3-4 Higher Order ONE of the following medications: *Heparin 5000 units SQ TID *Enoxaparin/Lovenox 40 mg SQ daily (WT < 150 kg, CrCl > 30 mL/min) *Enoxaparin/Lovenox 30 mg SQ daily (WT < 150 kg, CrCl > 10-29 mL/min) *Enoxaparin/Lovenox 30 mg SQ BID (WT < 150 kg, CrCl > 30 mL/min) AND/OR *Sequential Compression Device (SCD) 5 or more Highest Order ONE of the following medications: *Heparin 5000 units SQ TID (Preferred with Epidurals) *Enoxaparin/Lovenox 40 mg SQ daily (WT < 150 kg, CrCl > 30 mL/min) *Enoxaparin/Lovenox 30 mg SQ daily (WT < 150 kg, CrCl > 10-29 mL/min) *Enoxaparin/Lovenox 30 mg SQ BID (WT < 150 kg, CrCl > 30 mL/min) AND *Sequential Compression Device (SCD) Assessment and Plan Problem List: (1) Non-ST elevation [place] (NSTEMI) ICD Code: I21.4 - Non-ST elevation (NSTEMI) myocardial infarction (2) Acute decompensated heart failure ICD Code: I50.9 - Heart failure, unspecified (3) Atrial fibrillation with RVR ICD Code: I48.91 - Unspecified atrial fibrillation Assessment and Plan 56-year-old man with Non-ST elevation [place] Cardiology consultation appreciated Status post emergent LHC with cardiac x 1 CXR noted and review by me Continue current treatment including Aspirin, Effient, Lipitor,ramipril, Coreg Atrial fibrillation with RVR Currently on Cardizem drip Start heparin drip 2-D echo pending Compensated congestive heart failure unknown type 2-D echo pending Diuretic Bilateral lower extremity edema Doppler ruled out DVT Secondary to above heart failure Diabetes type 2 Check A1c start Medium sliding scale insulin DVT prophylaxis: Heparin Code Status Full code Discussed Condition With Patient, Physician Certification 2 Midnight Certification Type: Continued Stay Order for Inpatient Services The services are ordered in accordance with Medicare regulations or non- Medicare payer requirements, as applicable. In the case of services not specified as inpatient-only, they are appropriately provided as inpatient services in accordance with the 2-midnight benchmark. Estimated LOS (days): 2 days is the estimated time the patient will need to remain in the hospital, assuming treatment plan goals are met and no additional complications. Post-Hospital Plan: Not yet determined Zacarias Shultz MD Dec 07, 2016 15:36
[2016-12-07] MEDS ORDERED: ONDANSETRON HCL 4 MG/2 ML VIAL IV PRN (15:45)
[2016-12-07] MEDS ORDERED: GLUCAGON 1 MG/ML VIAL OTHER PRN (15:45)
[2016-12-07] MEDS ORDERED: DEXTROSE 50% IN WATER 50 ML VIAL(D50) IV PRN (15:45)
[2016-12-07] MEDS ORDERED: DOCUSATE SODIUM 50 MG/SENNA 8.6 MG TAB PO PRN (16:00)
[2016-12-07] MEDS: INSULIN ASPART SUPPLEMENTAL SCALE SQ SCH ×2 (16:42→21:00)
[2016-12-07] MEDS: BUMETANIDE INJ 1 MG/4 ML VIAL IV PUSH SCH (16:43)
--- NOTE | 2016-12-07 20:00 | EKG ---
Date Performed: 12/07/2016 Time Performed: 07:02:48 PTAGE: 56 years EKG: SINUS TACHYCARDIA POSSIBLE LEFT ATRIAL ENLARGEMENT MARKED RIGHT AXIS DEVIATION ANTEROLATERA L MYOCARDIAL INFARCTION ABNORMAL ECG INTERPRETATION BASED ON A DEFAULT AGE OF 40 YEARS PREVIOUS TRACING : 10/13/2000 04.10 DOCTOR: Lucho Kaur Interpretating Date/Time 12/07/2016 19:57:52
--- NOTE | 2016-12-07 20:31 | ECHRPT ---
Indication: Heart failure, unspecified CONCLUSIONS The left ventricular systolic function is severely reduced with an estimated ejection fraction in th e range of 20-25%. Mild concentric left ventricular hypertrophy. Normal left ventricular size. Mild mitral valve regurgitation. No mitral valve stenosis. The mitral valve area by Pressure Halftime Method is _3.8_ cm. There is mild tricuspid valve regurgitation. The pulmonary valve is not well visualized. BP: / HR: Rhythm: MEASUREMENTS (Male / Female) Normal Values Technical Quality:Excellent 2D ECHO LV Diastolic Diameter PLAX 4.2 cm 4.2 - 5.9 / 3.9 - 5.3 cm LV Systolic Diameter PLAX 3.8 cm IVS Diastolic Thickness 1.3 cm 0.6 - 1.0 / 0.6 - 0.9 cm LVPW Diastolic Thickness 1.3 cm 0.6 - 1.0 / 0.6 - 0.9 cm LV Relative Wall Thickness 0.6 RV Internal Dim ED PLAX 2.8 cm M-MODE Aortic Root Diameter MM 3.1 cm LA Systolic Diameter MM 5.1 cm LA Ao Ratio MM 1.6 AV Cusp Separation MM 2.2 cm DOPPLER MV Area PHT 3.9 cm FINDINGS LEFT VENTRICLE The left ventricular systolic function is severely reduced with an estimated ejection fraction in th e range of 20-25%. Mild concentric left ventricular hypertrophy. Normal left ventricular size. RIGHT VENTRICLE Normal right ventricular size and systolic function. LEFT ATRIUM The left atrial size is normal. RIGHT ATRIUM The right atrial size is normal. ATRIAL SEPTUM Normal atrial septal thickness without atrial level shunting by limited color doppler interrogation. AORTA The aortic root and proximal ascending aorta are normal in size on limited imaging. MITRAL VALVE Structurally normal mitral valve. Mild mitral valve regurgitation. No mitral valve stenosis. The mitral valve area by Pressure Halftime Method is _3.8_ cm. AORTIC VALVE Trileaflet aortic valve. No aortic valve stenosis or regurgitation. TRICUSPID VALVE Structurally normal tricuspid valve. There is mild tricuspid valve regurgitation. PULMONARY VALVE The pulmonary valve is not well visualized. VESSELS The inferior vena cava is normal in size. PERICARDIUM No pericardial effusion. Kaleb Foreman MD, FACC, [facility] (Electronically Signed) Final Date:07 December 2016 20:30
[2016-12-07] MEDS ORDERED: ATORVASTATIN 10 MG TAB PO SCH (21:00)
[2016-12-07] MEDS: SODIUM CHLORIDE 0.9% FLUSH 10 ML FLUSH SCH (21:00)
[2016-12-07] MEDS ORDERED: SODIUM CHLORIDE 0.9% FLUSH 10 ML FLUSH IV FLUSH SCH (21:00)
[2016-12-07] MEDS: CARVEDILOL 3.125 MG TAB PO SCH (21:51)
[2016-12-08] VITALS (25 sets, daily range): BP systolic 130–144; BP diastolic 83–94; PULSE 72–102; RESP 14–18; TEMP 97.5–98; O2SAT 82–98
[2016-12-08] MEDS ORDERED: HEPARIN SODIUM - IV 10,000 UNITS/10 ML VIAL IV PRN ×2 (01:30)
[2016-12-08] MEDS ORDERED: HEPARIN 25,000 UNITS-D5W 250 ML - PREMIX IV SCH ×2 (01:30→01:45)
[2016-12-08] MEDS: TIROFIBAN IV SCH ×2 (02:00→07:19)
[2016-12-08 06:44] LABS: AUTOMATED NEUTROPHIL # 5.6 TH/MM3 (1.8-7.7); BASOPHIL # 0.1 TH/MM3 (0-0.2); EOSINOPHIL # 0.4 TH/MM3 (0-0.4); EOSINOPHIL % 4.4 % (0.0-4.0); HEMATOCRIT 46.7 % (39.0-51.0); HEMO FLAGS DIFF FINAL; LYMPH % 20.5 % (9.0-44.0); LYMPHOCYTE # 1.8 TH/MM3 (1.0-4.8); MEAN CELL VOLUME 98.6 FL (80.0-100.0); MEAN CORPUSCULAR HEMOGLOBIN 34.3 PG (27.0-34.0); MEAN CORPUSCULAR HGB CONC 34.8 % (32.0-36.0); NEUT % 65.1 % (16.0-70.0); PLATELET COUNT 267 TH/MM3 (150-450); RED BLOOD COUNT 4.74 MIL/MM3 (4.50-5.90); RED CELL DISTRIBUTION WIDTH 14.3 % (11.6-17.2); WHITE BLOOD COUNT 8.6 TH/MM3 (4.0-11.0)
[2016-12-08] MEDS: INSULIN ASPART SUPPLEMENTAL SCALE SQ SCH ×4 (06:45→21:00)
[2016-12-08 06:47] LABS: APTT (PATIENT) 28.2 SEC (24.3-30.1)
[2016-12-08 07:15] LABS: BICARBONATE 26.2 MEQ/L (21.0-32.0); MAGNESIUM 1.5 MG/DL (1.5-2.5); POTASSIUM 3.3 MEQ/L (3.5-5.1)
[2016-12-08 07:17] LABS: HDL CHOLESTEROL 30.1 MG/DL (40.0-60.0)
[2016-12-08] MEDS ORDERED: RAMIPRIL 2.5 MG CAP PO SCH (09:00)
[2016-12-08] MEDS: BUMETANIDE INJ 1 MG/4 ML VIAL IV PUSH SCH ×2 (09:00→17:43)
[2016-12-08] MEDS: SODIUM CHLORIDE 0.9% FLUSH 10 ML FLUSH SCH ×2 (09:00→20:40)
[2016-12-08] MEDS: ASPIRIN 81 MG CHEW TAB PO SCH (09:24)
[2016-12-08] MEDS: PRASUGREL 10 MG TAB PO SCH (09:24)
[2016-12-08] MEDS: CARVEDILOL 3.125 MG TAB PO SCH (09:25)
[2016-12-08] MEDS ORDERED: POTASSIUM CHLORIDE 20 MEQ CONTROLLED RELEASE TAB PO ONE (10:00)
[2016-12-08] MEDS ORDERED: FUROSEMIDE 20 MG TAB PO SCH (10:00)
--- NOTE | 2016-12-08 10:11 | MA ---
cc: MARIBEL CHRIS M.D. DATE 12/07/2016 PROCEDURE PERFORMED Right heart catheterization, left heart catheterization, left ventriculography, coronary angiography, saphenous vein angiography, KOVACS angiography, direct PCI bare metal stent to the proximal mid left circumflex vessel. INDICATIONS New onset dry cough at rest, orthopnea, coronary artery disease status post CABG, diabetes mellitus, cardiomyopathy, [place] Heart Association class IV congestive heart failure anginal equivalent, [place] Cardiovascular Society class IV angina. PROCEDURAL STATEMENT The patient was brought to the cardiac catheterization laboratory, prepped and draped in the usual sterile fashion. 10 cc's of 1% lidocaine was used to locally anesthetize the right common femoral artery. A 4-[place] sheath placed in the right common femoral artery. A 5-[place] sheath placed in the right common femoral vein. Right heart catheterization was performed first with the following findings: Pulmonary capillary wedge pressure 36/37-31, PA pressure 53/20-38. The RV pressure 49/12-18. RA 21/21-___. The PA sat was 74%, RA sat was 75.6%. The femoral artery sat, these were all done on room air by the way, was 97%. The cardiac output was 5.1 liters per minute, cardiac index 2.2 liters per minute. The SVR was 1453.7 dynes. Left heart catheterization was then performed with a 4-[place] JR-4, JL-4 catheter with the following findings: The right coronary is dominant, has a proximal focal 90% stenosis. It is occluded in the mid segment. The vein graft to the diagonal vessel has moderate diffuse disease up to 50% in the [id number] segment. The diagonal vessel supplies a very small vessel probably 0.5 mm in diameter and it has a length of maybe 6-7 mm. There is a vein graft which probably goes to obtuse marginal vessel which is occluded in the ostial proximal segment. Vein graft to the second diagonal artery has a probably 70% stenosis at the anastomosis. It is difficult to tell if this is just due to chaffing because the diagonal vessel is a very small vessel probably 0.5 to 1 mm in diameter at the most. There is a fourth vein graft which I cannot selectively engage that is the highest of the four suggesting it is probably to a marginal vessel. The KOVACS to the LAD is widely patent. The LAD beyond the graft insertion site has no significant obstructive disease. It is not transapical. There are grade 4 collaterals by septal perforators to the right PDA which fills to a point of occlusion in the proximal segment of the right PDA. The LV pressures are 150/28-30. The ejection fraction is 25-30% with global hypokinesis. The left main coronary artery has no significant disease angiographically. The left circumflex vessel has an ostial proximal 30% stenosis. The midsegment has a 90% stenosis. There are two distal posterolateral arteries which are small to medium in size. There is a very small third posterolateral artery which bifurcates. These vessels have no significant obstructive disease. The LAD is 60-70% diffuse disease proximally and is occluded at the first septal curtain roller assembler. 7-[place] sheath was changed for a 4-[place] sheath. 70 units/kg of heparin was given initial ACT of 204 and an additional 2000 units of heparin was given with a final ACT of 251. A 6-S[place] XB 4.0 guide and a 0.14 Prowater guidewire and a 3.0 x 9 Integrity stent was used to directly stent the proximal mid left circumflex vessel with one inflation to 14 atmospheres for 20 seconds. The stenosis went from 90% to 0% with GEOVANI-III flow. NOTE, this did reproduce the patient's symptom of a dry cough. CONCLUSION 1. Non-STEMI, culprits 90% stenosis in the proximal mid-left circumflex vessel supplying two small to medium sized posterolateral arteries and a distal small posterolateral Artery. 2. Severe three-vessel coronary disease as detailed above. 3. Three of five grafts patent. 4. Patent KOVACS 5. Cardiomyopathy up to 25-30% global hypokinesis. 6. Severely elevated LVDP in moderate to severely elevated pulmonary capillary wedge pressure and PA pressures as detailed above. 7. Cardiac index of 2.1 liters/meter squared per minute. 8. Successful direct PCI bare metal stent of the proximal left circumflex from 90% to 0% with GEOVANI-III flow. Suspect the patient's decompensated congestive heart failure is multifactorial due to obstructive coronary disease and A. Fib with rapid ventricular response. He was given 40 of IV Lasix in the grass farm laborer, 0.5 mg of IV dig. We gave him Cardizem bolus of 10 mg prior to arrival to the grass farm laborer and placed him on a Cardizem drip 10 mg an hour and at the time of transfer out of the grass farm laborer, heart rate was in the low 100s. We need to follow up daily, BNP, BMP, magnesium, CBC. 9. Recommend Effient 60 mg p.o. 10 kg daily for 12-15 months, aspirin 162 mg daily. 10. We will restart heparin post sheath pull due to the atrial fibrillation and the CHADS score of 3 (diabetes mellitus, congestive heart failure, hypertension). We will need to discussed with the patient the risks and benefits of long-term anticoagulation. I would recommend Coumadin or Novolin oral anticoagulant agent due to the CHADS score of 3. MD AMY Madden/NOAM /2:36 PM /9:40 AM
--- NOTE | 2016-12-08 10:43 | HHI.PR ---
Subjective Remarks Follow-up non-ST elevation NC/atrial fibrillation with RVR/acute systolic CHF 12/08/16-patient seen and examined, complains of orthopnea at night home however during the day patient reported improvement of symptom of shortness of breath. Denies any chest pain. Objective Vitals Vital Signs Date Time Temp Pulse Resp B/P (MAP) Pulse Ox O2 Delivery O2 Flow Rate FiO2 12/08/16 10:08 82 141/85 12/08/16 08:00 97.5 82 16 141/85 (103) 82 12/08/16 06:00 80 12/08/16 05:00 80 12/08/16 04:00 74 12/08/16 03:00 97.6 77 14 130/83 (99) 97 12/08/16 03:00 74 12/08/16 02:00 80 12/08/16 01:00 84 12/08/16 00:00 72 12/07/16 23:28 97.7 78 18 133/87 (102) 97 12/07/16 23:00 77 12/07/16 22:00 80 12/07/16 21:00 62 12/07/16 20:43 97.7 65 20 116/67 (83) 95 12/07/16 20:00 64 12/07/16 19:00 66 12/07/16 18:07 68 12/07/16 17:25 64 12/07/16 16:07 68 12/07/16 15:44 101 12/07/16 15:39 98.0 16 18 125/83 (97) 96 12/07/16 11:42 12/07/16 11:00 97.7 116 20 140/94 (109) 98 12/07/16 10:46 99 Room Air I/O 12/07/16 12/07/16 12/07/16 12/08/16 12/08/16 12/08/16 07:00 15:00 23:00 07:00 15:00 23:00 Intake Total 1090 ml 500 ml Output Total 100 ml 1400 ml 725 ml Balance -100 ml -310 ml -225 ml Intake Oral 240 ml 240 ml IV Total 850 ml 260 ml Output Urine Total 100 ml 1400 ml 725 ml # Voids 3 # Bowel Movements 0 Result Diagram: 12/08/16 04512/08/16 0455 Imaging Last Impressions Lower Extremity Ultrasound 12/07/16 0831 Signed Impressions: Service Date/Time: Wednesday, December 07, 2016 10:32 - CONCLUSION: Normal examination. Favian Balbuena MD Chest X-Ray 12/07/16 0655 Signed Impressions: Service Date/Time: Wednesday, December 07, 2016 07:10 - CONCLUSION: Small bilateral pleural effusions and bilateral alveolar and interstitial infiltrates. Favian Balbuena MD Objective Remarks GENERAL: NAD SKIN: Warm and dry. HEAD: Normocephalic. EYES: No scleral icterus. No injection or drainage. NECK: Supple, trachea midline. No JVD or lymphadenopathy. CARDIOVASCULAR: Irregular Regular rate and rhythm without murmurs, gallops, or rubs. RESPIRATORY: Breath sounds equal bilaterally. No accessory muscle use. GASTROINTESTINAL: Abdomen soft, non-tender, nondistended. MUSCULOSKELETAL: No cyanosis, or edema. BACK: Nontender without obvious deformity. No CVA tenderness. A/P Problem List: (1) Non-ST elevation [place] (NSTEMI) ICD Code: I21.4 - Non-ST elevation (NSTEMI) myocardial infarction (2) Acute decompensated heart failure ICD Code: I50.9 - Heart failure, unspecified (3) Atrial fibrillation with RVR ICD Code: I48.91 - Unspecified atrial fibrillation (4) Acute systolic congestive heart failure ICD Code: I50.21 - Acute systolic (congestive) heart failure Assessment and Plan 56-year-old man with Non-ST elevation [place] Cardiology consultation appreciated Status post emergent LHC with cardiac x 1 Continue current treatment including Aspirin, Effient, Lipitor,ramipril, Coreg Atrial fibrillation with RVR Currently on Cardizem and heparin drip Continue with Coreg, ramipril 2-D echo 20 25% Systolic Compensated congestive heart failure 2-D echo 20 25% Patient currently on Bumex 1 mg IV twice a day, therefore will discontinue Lasix Hypokalemia Give potassium 60 mEq 1 now Bilateral lower extremity edema Doppler ruled out DVT Secondary to above heart failure Diabetes type 2 A1c pending Continue Medium sliding scale insulin DVT prophylaxis: Zacarias Cespedes MD Dec 08, 2016 10:43
--- NOTE | 2016-12-08 13:55 | EKG ---
Date Performed: 12/07/2016 Time Performed: 14:55:02 PTAGE: 56 years EKG: Atrial fibrillation. Right axis deviation Lateral infarct - age undetermined Inferior T wav e changes are nonspecific Atrial fibrillation is new since prior tracing Clinical correlation is ritu mmended Abnormal ECG PREVIOUS TRACING : 12/07/2016 07.02 DOCTOR: Trace Arcos Interpretating Date/Time 12/08/2016 13:51:40
--- NOTE | 2016-12-08 13:55 | EKG ---
Date Performed: 12/08/2016 Time Performed: 05:04:12 PTAGE: 56 years EKG: Sinus rhythm Possible left atrial abnormality Rightward axis Possible anteroseptal infarct - age undetermined Com pared to previous tracing sinus rhythm has replaced atrial fibrillation Abnormal ECG PREVIOUS TRACING : 12/07/2016 14.55 DOCTOR: Trace Arcos Interpretating Date/Time 12/08/2016 13:51:56
--- NOTE | 2016-12-08 15:24 | PD.CARD.PN ---
Subjective Subjective Remarks c/o dyspnea, difficulty sleeping, cough resolved Objective Vital Signs / I&O Vital Signs Date Time Temp Pulse Resp B/P (MAP) Pulse Ox O2 Delivery O2 Flow Rate FiO2 12/08/16 15:01 97 138/88 12/08/16 14:53 97 12/08/16 13:07 89 12/08/16 12:06 100 12/08/16 11:32 97.6 84 16 141/94 (110) 84 12/08/16 11:32 97 12/08/16 10:08 82 141/85 12/08/16 10:00 100 12/08/16 09:00 84 12/08/16 08:00 97.5 82 16 141/85 (103) 82 12/08/16 08:00 82 12/08/16 07:30 83 12/08/16 06:00 80 12/08/16 05:00 80 12/08/16 04:00 74 12/08/16 03:00 97.6 77 14 130/83 (99) 97 12/08/16 03:00 74 12/08/16 02:00 80 12/08/16 01:00 84 12/08/16 00:00 72 12/07/16 23:28 97.7 78 18 133/87 (102) 97 12/07/16 23:00 77 12/07/16 22:00 80 12/07/16 21:00 62 12/07/16 20:43 97.7 65 20 116/67 (83) 95 12/07/16 20:00 64 12/07/16 19:00 66 12/07/16 18:07 68 12/07/16 17:25 64 12/07/16 16:07 68 12/07/16 15:44 101 12/07/16 15:39 98.0 16 18 125/83 (97) 96 I/O 12/07/16 12/07/16 12/07/16 12/08/16 12/08/16 12/08/16 07:00 15:00 23:00 07:00 15:00 23:00 Intake Total 1090 ml 500 ml Output Total 100 ml 1400 ml 725 ml Balance -100 ml -310 ml -225 ml Intake Oral 240 ml 240 ml IV Total 850 ml 260 ml Output Urine Total 100 ml 1400 ml 725 ml # Voids 3 # Bowel Movements 0 Physical Exam GENERAL: SKIN: Warm and dry. HEAD: Normocephalic. EYES: No scleral icterus. No injection or drainage. NECK: Supple, trachea midline. No JVD or lymphadenopathy. CARDIOVASCULAR: Regular rate and rhythm without murmurs, gallops, or rubs. RESPIRATORY: Breath sounds equal bilaterally. No accessory muscle use. GASTROINTESTINAL: Abdomen soft, non-tender, nondistended. MUSCULOSKELETAL: No cyanosis, or edema. BACK: Nontender without obvious deformity. No CVA tenderness. Laboratory Laboratory Tests Test 12/07/16 21:43 12/08/16 04:55 12/08/16 06:20 Troponin I 0.41 NG/ML White Blood Count 8.6 TH/MM3 Red Blood Count 4.74 MIL/MM3 Hemoglobin 16.3 GM/DL Hematocrit 46.7 % Mean Corpuscular Volume 98.6 FL Mean Corpuscular Hemoglobin 34.3 PG Mean Corpuscular Hemoglobin Concent 34.8 % Red Cell Distribution Width 14.3 % Platelet Count 267 TH/MM3 Mean Platelet Volume 8.8 FL Neutrophils (%) (Auto) 65.1 % Lymphocytes (%) (Auto) 20.5 % Monocytes (%) (Auto) 9.0 % Eosinophils (%) (Auto) 4.4 % Basophils (%) (Auto) 1.0 % Neutrophils # (Auto) 5.6 TH/MM3 Lymphocytes # (Auto) 1.8 TH/MM3 Monocytes # (Auto) 0.8 TH/MM3 Eosinophils # (Auto) 0.4 TH/MM3 Basophils # (Auto) 0.1 TH/MM3 CBC Comment DIFF FINAL Differential Comment Blood Urea Nitrogen 20 MG/DL Creatinine 1.10 MG/DL Random Glucose 219 MG/DL Calcium Level 9.1 MG/DL Magnesium Level 1.5 MG/DL Sodium Level 140 MEQ/L Potassium Level 3.3 MEQ/L Chloride Level 102 MEQ/L Carbon Dioxide Level 26.2 MEQ/L Anion Gap 12 MEQ/L Estimat Glomerular Filtration Rate 69 ML/MIN Total Creatine Kinase 127 U/L B-Type Natriuretic Peptide 569 PG/ML Triglycerides Level 128 MG/DL Cholesterol Level 140 MG/DL LDL Cholesterol 84 MG/DL HDL Cholesterol 30.1 MG/DL Cholesterol/HDL Ratio 4.65 RATIO Activated Partial Thromboplast Time 28.2 SEC Assessment and Plan Problem List: (1) CAD (coronary artery disease) ICD Codes: I25.10 - Atherosclerotic heart disease of [place] coronary artery without angina pectoris (2) Cardiomyopathy ICD Codes: I42.9 - Cardiomyopathy, unspecified (3) CHF (congestive heart failure) ICD Codes: I50.9 - Heart failure, unspecified Status: Acute (4) Atrial fibrillation with RVR ICD Codes: I48.91 - Unspecified atrial fibrillation (5) Dyspnea ICD Codes: R06.00 - Dyspnea, unspecified (6) Non-ST elevation [place] (NSTEMI) ICD Codes: I21.4 - Non-ST elevation (NSTEMI) myocardial infarction (7) Acute decompensated heart failure ICD Codes: I50.9 - Heart failure, unspecified (8) Acute systolic congestive heart failure ICD Codes: I50.21 - Acute systolic (congestive) heart failure (9) Elevated troponin ICD Codes: R74.8 - Abnormal levels of other serum enzymes Status: Acute Assessment and Plan 1.) CAD - cough resolved s/p pci lcx, continue aspirin, effient, lipitor 2.) Cardiomyopathy - may be failing omt, cardizenew dc'd, increase altace 5 mg qd , cont bumex, increase coreg 12.5 mg bid, add aldactone 25 mg bidattempt transfer to [facility] for heart [facility] eval, consult Dr Kaur for biv/icd eval, f/u bmp/bnp, Kaleb Foreman MD Dec 08, 2016 15:24
[2016-12-08] MEDS ORDERED: DIGOXIN 0.25 MG TAB PO ONE (15:30)
[2016-12-08] MEDS ORDERED: SPIRONOLACTONE 25 MG TAB PO ONE (15:30)
[2016-12-08 15:53] LABS: APTT (PATIENT) 31.8 SEC (24.3-30.1)
[2016-12-08] MEDS: SPIRONOLACTONE 25 MG TAB PO SCH ×2 (16:50→16:51)
[2016-12-08] MEDS: ATORVASTATIN 20 MG TAB PO SCH (20:36)
[2016-12-08] MEDS ORDERED: CARVEDILOL 12.5 MG TAB PO SCH (21:00)
[2016-12-08] MEDS: ZOLPIDEM TARTRATE 5 MG TAB PO PRN (22:51)
[2016-12-08 22:54] LABS: APTT (PATIENT) 32.3 SEC (24.3-30.1)
[2016-12-09] VITALS (25 sets, daily range): BP systolic 108–137; BP diastolic 66–93; PULSE 80–94; RESP 16–20; TEMP 97.1–97.8; O2SAT 93–99
[2016-12-09] MEDS: INSULIN ASPART SUPPLEMENTAL SCALE SQ SCH ×4 (06:04→21:50)
[2016-12-09 06:53] LABS: APTT (PATIENT) 33.4 SEC (24.3-30.1)
[2016-12-09 06:54] LABS: HEMATOCRIT 47.6 % (39.0-51.0); MEAN CELL VOLUME 98.6 FL (80.0-100.0); MEAN CORPUSCULAR HEMOGLOBIN 33.9 PG (27.0-34.0); MEAN CORPUSCULAR HGB CONC 34.4 % (32.0-36.0); PLATELET COUNT 232 TH/MM3 (150-450); RED BLOOD COUNT 4.83 MIL/MM3 (4.50-5.90); RED CELL DISTRIBUTION WIDTH 14.1 % (11.6-17.2); REVIEW FLAG FINAL; WHITE BLOOD COUNT 9.1 TH/MM3 (4.0-11.0)
[2016-12-09 07:17] LABS: BICARBONATE 24.9 MEQ/L (21.0-32.0); MAGNESIUM 1.5 MG/DL (1.5-2.5); POTASSIUM 3.8 MEQ/L (3.5-5.1)
[2016-12-09 07:32] LABS: DIGOXIN 0.6 NG/ML (0.8-2.0)
[2016-12-09] MEDS: BUMETANIDE INJ 1 MG/4 ML VIAL IV PUSH SCH (08:57)
[2016-12-09] MEDS: ASPIRIN 81 MG CHEW TAB PO SCH (08:58)
[2016-12-09] MEDS: PRASUGREL 10 MG TAB PO SCH (08:58)
[2016-12-09] MEDS: SODIUM CHLORIDE 0.9% FLUSH 10 ML FLUSH SCH ×2 (08:59→21:00)
[2016-12-09] MEDS ORDERED: POTASSIUM CHLORIDE 10 MEQ CONTROLLED RELEASE TAB PO SCH (09:00)
[2016-12-09] MEDS ORDERED: RAMIPRIL 5 MG CAP PO SCH (09:00)
[2016-12-09] MEDS ORDERED: DIGOXIN 0.25 MG TAB PO SCH (09:00)
[2016-12-09] MEDS: CARVEDILOL 12.5 MG TAB PO SCH ×2 (09:07→21:46)
--- NOTE | 2016-12-09 10:21 | HHI.PR ---
Subjective Remarks Follow-up non-ST elevation [place]/atrial fibrillation with RVR/acute systolic CHF 12/08/16-patient seen and examined, complains of orthopnea at night home however during the day patient reported improvement of symptom of shortness of breath. Denies any chest pain. 12/09/16-patient seen and examined, reports improvement of shortness of breath and denies any chest pain. States, he had a good night sleep. Case discussed with both Dr. Kaur and Dr. Foreman. Patient will need LifeVest and no longer transferred to [facility] for heart transplantation evaluation Objective Vitals Vital Signs Date Time Temp Pulse Resp B/P (MAP) Pulse Ox O2 Delivery O2 Flow Rate FiO2 12/09/16 09:55 89 12/09/16 08:08 97.1 91 20 134/92 (106) 98 12/09/16 07:35 91 12/09/16 06:00 88 12/09/16 05:00 84 12/09/16 04:12 90 12/09/16 03:00 92 12/09/16 03:00 97.5 93 18 137/93 (108) 97 12/09/16 02:23 83 12/09/16 02:00 84 12/09/16 01:00 88 12/09/16 00:00 94 12/08/16 23:00 95 12/08/16 23:00 97.5 94 18 144/93 (110) 97 12/08/16 22:00 90 12/08/16 21:00 98 12/08/16 20:29 97.8 94 18 140/93 (109) 96 12/08/16 20:00 102 12/08/16 19:01 100 12/08/16 18:04 94 12/08/16 17:00 84 12/08/16 16:34 93 12/08/16 15:40 101 12/08/16 15:40 98.0 97 16 138/88 (105) 98 12/08/16 15:01 97 138/88 12/08/16 14:53 97 12/08/16 14:00 97 138/92 12/08/16 13:07 89 12/08/16 13:00 89 131/89 12/08/16 12:06 100 12/08/16 12:00 91 128/84 12/08/16 11:32 97.6 84 16 141/94 (110) 97 12/08/16 11:32 97 12/08/16 11:00 91 141/94 I/O 12/08/16 12/08/16 12/08/16 12/09/16 12/09/16 12/09/16 07:00 15:00 23:00 07:00 15:00 23:00 Intake Total 500 ml 240 ml 240 ml Output Total 725 ml 500 ml 2225 ml Balance -225 ml -260 ml -1985 ml Intake Oral 240 ml 240 ml 240 ml IV Total 260 ml Output Urine Total 725 ml 500 ml 2225 ml # Bowel Movements 1 Result Diagram: 12/09/16 0555 12/09/16 0555 Imaging Last Impressions Lower Extremity Ultrasound 12/07/16 0831 Signed Impressions: Service Date/Time: Wednesday, December 07, 2016 10:32 - CONCLUSION: Normal examination. Favian Balbuena MD Chest X-Ray 12/07/16 0655 Signed Impressions: Service Date/Time: Wednesday, December 07, 2016 07:10 - CONCLUSION: Small bilateral pleural effusions and bilateral alveolar and interstitial infiltrates. Favian Balbuena MD Objective Remarks GENERAL: NAD SKIN: Warm and dry. HEAD: Normocephalic. EYES: No scleral icterus. No injection or drainage. NECK: Supple, trachea midline. No JVD or lymphadenopathy. CARDIOVASCULAR: Irregular Regular rate and rhythm without murmurs, gallops, or rubs. RESPIRATORY: Breath sounds equal bilaterally. No accessory muscle use. GASTROINTESTINAL: Abdomen soft, non-tender, nondistended. MUSCULOSKELETAL: No cyanosis, or edema. BACK: Nontender without obvious deformity. No CVA tenderness. A/P Problem List: (1) Non-ST elevation [place] (NSTEMI) ICD Code: I21.4 - Non-ST elevation (NSTEMI) myocardial infarction (2) Acute decompensated heart failure ICD Code: I50.9 - Heart failure, unspecified (3) Atrial fibrillation with RVR ICD Code: I48.91 - Unspecified atrial fibrillation (4) Acute systolic congestive heart failure ICD Code: I50.21 - Acute systolic (congestive) heart failure Assessment and Plan 56-year-old man with Non-ST elevation [place] Cardiology consultation appreciated Status post emergent LHC with cardiac x 1 Continue current treatment including Aspirin, Effient, Lipitor, Aldactone Coreg Will need LifeVest with the next 24 hours Atrial fibrillation with RVR Currently on heparin drip; diltiazem drip was discontinued Continue with Coreg however increased to 12.5 mg twice a day 2-D echo 20 25% Acute Systolic Compensated congestive heart failure 2-D echo 20 25% Patient currently on Bumex 1 mg IV twice a day which I will switch to by mouth Currently on Aldactone, Coreg and will start Entresto 12/10/16 Will need LifeVest with the next 24 hours Hypokalemia Resolved with replacement Bilateral lower extremity edema Doppler ruled out DVT Secondary to above heart failure Diabetes type 2 A1c pending Continue Medium sliding scale insulin Resume metformin and Januvia Hypothyroidism Resume Synthroid DVT prophylaxis: Heparin Zacarias Shultz MD Dec 09, 2016 10:21
--- NOTE | 2016-12-09 10:23 | MB ---
cc: VILMA GARCIA M.D. DATE OF CONSULTATION: 12/08/2016 REASON FOR CONSULTATION: Possible defibrillator insertion. HISTORY: Mr. Betancourt is a 56-year-old gentleman with history of congestive heart failure, coronary artery disease, high blood pressure, hyperlipidemia, coronary artery bypass grafting 17 years ago. The patient was followed by Dr. Burt subsequently, Dr. 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 He was feeling tired that went to his primary doctor and received a Z-Darius. Subsequently continued shortness of breath. He went to the emergency room he was admitted for heart failure. Echocardiogram read by Dr. Foreman indicated ejection fraction of around 40%. Subsequently he underwent the left heart catheterization that indicated no significant occlusion. I was consulted for evaluation and management. The chart was reviewed. The patient was evaluated, I had a long conversation with him and his . ALLERGIES GENTAMICIN. SOCIAL HISTORY Negative for smoking and drinking. FAMILY HISTORY Noncontributory to his current medical condition. MEDICATIONS AT HOME 1. He is on aspirin. 2. Metformin. 3. Synthroid. 4. Altace. 5. Januvia. REVIEW OF SYSTEMS Currently refers shortness of breath on minimal activity but no chest pain or chest discomfort. No fever. PHYSICAL EXAMINATION: IN GENERAL: Physical exam, alert fully oriented. His blood pressure on evaluation 138/88, pulse 97, respiratory rate 20 LUNGS: Ventilated CARDIOVASCULAR SYSTEM: S1-S2, no gallop. No murmur. ABDOMEN: Obese. No mass or bruit EXTREMITIES: With minimal edema. RADIOLOGIC: Electrocardiogram shows atrial fibrillation, diffuse ST and T-wave changes. Previous electrocardiogram shows sinus rhythm. LABORATORY DATA Hemoglobin 16.3, white blood cell 8.6, potassium 3.8, creatinine 1.05, total cholesterol 140, LDL 84, HDL 30. ASSESSMENT AND RECOMMENDATIONS Mr. Betancourt has history of heart failure. Ejection fraction 20%. A year and half ago apparently the ejection fraction was OK. These symptoms are new. His blood pressure is high. At this point I am going to optimize his medical management. I discussed the case with the patient and his . He will need a defibrillatory vest before going home. Subsequently in 60 to 90 days, and the echo will be repeated. Ejection fraction still low then he will need a defibrillator. I will closely monitor gentleman during hospitalization. MD Franny Dodson /8:44 AM /9:32 AM
--- NOTE | 2016-12-09 13:06 | PD.CARD.PN ---
Subjective Subjective Remarks feels better Objective Vital Signs / I&O Vital Signs Date Time Temp Pulse Resp B/P (MAP) Pulse Ox O2 Delivery O2 Flow Rate FiO2 12/09/16 12:03 88 12/09/16 11:40 97.1 81 18 111/66 (81) 98 12/09/16 11:40 81 12/09/16 09:55 89 12/09/16 08:08 97.1 91 20 134/92 (106) 98 12/09/16 07:35 91 12/09/16 06:00 88 12/09/16 05:00 84 12/09/16 04:12 90 12/09/16 03:00 92 12/09/16 03:00 97.5 93 18 137/93 (108) 97 12/09/16 02:23 83 12/09/16 02:00 84 12/09/16 01:00 88 12/09/16 00:00 94 12/08/16 23:00 95 12/08/16 23:00 97.5 94 18 144/93 (110) 97 12/08/16 22:00 90 12/08/16 21:00 98 12/08/16 20:29 97.8 94 18 140/93 (109) 96 12/08/16 20:00 102 12/08/16 19:01 100 12/08/16 18:04 94 12/08/16 17:00 84 12/08/16 16:34 93 12/08/16 15:40 101 12/08/16 15:40 98.0 97 16 138/88 (105) 98 12/08/16 15:01 97 138/88 12/08/16 14:53 97 12/08/16 14:00 97 138/92 12/08/16 13:07 89 I/O 12/08/16 12/08/16 12/08/16 12/09/16 12/09/16 12/09/16 06:59 14:59 22:59 06:59 14:59 22:59 Intake Total 500 ml 240 ml 240 ml Output Total 725 ml 500 ml 2225 ml Balance -225 ml -260 ml -1985 ml Intake Oral 240 ml 240 ml 240 ml IV Total 260 ml Output Urine Total 725 ml 500 ml 2225 ml # Bowel Movements 1 Physical Exam GENERAL: SKIN: Warm and dry. HEAD: Normocephalic. EYES: No scleral icterus. No injection or drainage. NECK: Supple, trachea midline. No JVD or lymphadenopathy. CARDIOVASCULAR: Regular rate and rhythm without murmurs, gallops, or rubs. RESPIRATORY: Breath sounds equal bilaterally. No accessory muscle use. GASTROINTESTINAL: Abdomen soft, non-tender, nondistended. MUSCULOSKELETAL: No cyanosis, or edema. BACK: Nontender without obvious deformity. No CVA tenderness. Laboratory Laboratory Tests Test 12/08/16 14:46 12/08/16 15:00 12/08/16 22:26 12/09/16 05:55 Activated Partial Thromboplast Time 31.8 SEC 32.3 SEC 33.4 SEC Nasal Screen MRSA (PCR) MRSA NOT DETECTED White Blood Count 9.1 TH/MM3 Red Blood Count 4.83 MIL/MM3 Hemoglobin 16.4 GM/DL Hematocrit 47.6 % Mean Corpuscular Volume 98.6 FL Mean Corpuscular Hemoglobin 33.9 PG Mean Corpuscular Hemoglobin Concent 34.4 % Red Cell Distribution Width 14.1 % Platelet Count 232 TH/MM3 Mean Platelet Volume 8.6 FL Blood Urea Nitrogen 18 MG/DL Creatinine 1.05 MG/DL Random Glucose 242 MG/DL Calcium Level 9.1 MG/DL Magnesium Level 1.5 MG/DL Sodium Level 136 MEQ/L Potassium Level 3.8 MEQ/L Chloride Level 97 MEQ/L Carbon Dioxide Level 24.9 MEQ/L Anion Gap 14 MEQ/L Estimat Glomerular Filtration Rate 73 ML/MIN B-Type Natriuretic Peptide 539 PG/ML Digoxin Level 0.6 NG/ML Assessment and Plan Problem List: (1) CAD (coronary artery disease) ICD Codes: I25.10 - Atherosclerotic heart disease of [place] coronary artery without angina pectoris (2) Cardiomyopathy ICD Codes: I42.9 - Cardiomyopathy, unspecified (3) CHF (congestive heart failure) ICD Codes: I50.9 - Heart failure, unspecified Status: Acute (4) Atrial fibrillation with RVR ICD Codes: I48.91 - Unspecified atrial fibrillation (5) Dyspnea ICD Codes: R06.00 - Dyspnea, unspecified (6) Non-ST elevation [place] (NSTEMI) ICD Codes: I21.4 - Non-ST elevation (NSTEMI) myocardial infarction (7) Acute decompensated heart failure ICD Codes: I50.9 - Heart failure, unspecified (8) Acute systolic congestive heart failure ICD Codes: I50.21 - Acute systolic (congestive) heart failure (9) Elevated troponin ICD Codes: R74.8 - Abnormal levels of other serum enzymes Status: Acute Assessment and Plan 1.) CAD - cough resolved s/p pci lcx, continue aspirin, effient, lipitor 2.) Cardiomyopathy - may be failing omt, cardizem dc'd, continue coreg 25 mg bid , entresto, bumex, increase aldactone 50 mg bid, d/w [facility] heart transplant yesterday, plan [facility] o[facility], outpatient referral unless patient fails inpatient omt, f/u rec Dr Kaur for biv/icd eval, f/u bmp/bnp, 3.) PAF - in nsr, continue heparin, dapt for now Kaleb Foreman MD Dec 09, 2016 13:06
[2016-12-09] MEDS ORDERED: metFORMIN HCL 500 MG TAB PO SCH (16:00)
[2016-12-09] MEDS: SPIRONOLACTONE 50 MG TAB PO SCH (17:16)
[2016-12-09] MEDS: BUMETANIDE 1 MG TAB PO SCH (17:16)
[2016-12-09 18:58] LABS: APTT (PATIENT) 34.5 SEC (24.3-30.1)
[2016-12-09] MEDS: ATORVASTATIN 20 MG TAB PO SCH (21:46)
[2016-12-09] MEDS: ZOLPIDEM TARTRATE 5 MG TAB PO PRN (21:46)
[2016-12-10] VITALS (17 sets, daily range): BP systolic 98–116; BP diastolic 66–74; PULSE 72–87; RESP 16; TEMP 97.5–98.4; O2SAT 95–98
[2016-12-10 01:18] LABS: APTT (PATIENT) 36.6 SEC (24.3-30.1)
[2016-12-10] MEDS ORDERED: LEVOTHYROXINE SODIUM 75 MCG TAB PO SCH (06:00)
[2016-12-10] MEDS ORDERED: metFORMIN HCL 500 MG TAB PO SCH (06:00)
[2016-12-10] MEDS: INSULIN ASPART SUPPLEMENTAL SCALE SQ SCH ×2 (08:31→11:00)
[2016-12-10] MEDS: SODIUM CHLORIDE 0.9% FLUSH 10 ML FLUSH SCH (09:00)
[2016-12-10] MEDS ORDERED: SACUBITRIL/VALSARTAN 49 MG-51 MG TAB PO SCH (09:00)
[2016-12-10 09:06] LABS: MEAN CORPUSCULAR HEMOGLOBIN 34.6 PG (27.0-34.0); MEAN CORPUSCULAR HGB CONC 35.3 % (32.0-36.0); PLATELET COUNT 224 TH/MM3 (150-450); RED CELL DISTRIBUTION WIDTH 14.1 % (11.6-17.2); REVIEW FLAG FINAL; WHITE BLOOD COUNT 7.7 TH/MM3 (4.0-11.0)
[2016-12-10 09:07] LABS: APTT (PATIENT) 36.9 SEC (24.3-30.1)
--- NOTE | 2016-12-10 09:11 | PD.CARD.PN ---
Subjective Subjective Remarks Feels okay. Ambulatory in the room. Objective Medications Current Medications Medications (Trade) Dose Ordered Sig/Bre Route Start Time Stop Time Status Last Admin (Zofran Inj) 4 mg Q6H PRN IVP 12/07/16 09:30 (Narcan Inj) 0.4 mg UNSCH PRN IV 12/07/16 09:30 (NS Flush) 2 ml UNSCH PRN .XX 12/07/16 14:15 (NS Flush) 2 ml BID .XX 12/07/16 21:00 12/09/16 21:00 (Aspirin Chew) 162 mg DAILY PO 12/08/16 09:00 12/09/16 08:58 (Effient) 10 mg DAILY PO 12/08/16 09:00 12/09/16 08:58 (D50w (Vial) Inj) 50 ml UNSCH PRN IV 12/07/16 15:45 (Glucagon Inj) 1 mg UNSCH PRN OTHER 12/07/16 15:45 (NovoLOG SUPPLEMENTAL SCALE) 1 ACHS SLIDING SCALE SQ 12/07/16 16:00 12/10/16 08:31 (Tylenol) 650 mg Q4H PRN PO 12/07/16 16:00 (Dilma-Colace) 1 tab BID PRN PO 12/07/16 16:00 Heparin Sodium/ Dextrose 250 ml @ 10 mls/hr TITRATE IV 12/08/16 01:45 12/09/16 01:58 (Lipitor) 20 mg HS PO 12/08/16 21:00 12/09/16 21:46 (Ambien) 5 mg HS PRN PO 12/08/16 19:00 12/09/16 21:46 (Coreg) 25 mg Q12HR PO 12/09/16 09:00 12/09/16 21:46 (Entresto 49-51 Mg) 1 tab BID PO 12/10/16 09:00 (Aldactone) 50 mg BID@ PO 12/09/16 18:00 12/09/16 17:16 (Bumetanide) 1 mg BID@,18 PO 12/09/16 18:00 12/09/16 17:16 (Synthroid) 75 mcg DAILY@0600 PO 12/10/16 06:00 12/10/16 06:06 (Glucophage) 1,000 mg DAILY@0600 PO 12/10/16 06:00 12/10/16 06:06 (Glucophage) 1,500 mg DAILY@1600 PO 12/09/16 16:00 12/09/16 17:16 (Januvia) 100 mg DAILY PO 12/10/16 09:00 Vital Signs / I&O Vital Signs Date Time Temp Pulse Resp B/P (MAP) Pulse Ox O2 Delivery O2 Flow Rate FiO2 12/10/16 06:02 87 12/10/16 05:00 77 12/10/16 04:00 75 12/10/16 03:30 97.6 84 16 116/69 (85) 95 12/10/16 03:00 82 12/10/16 02:05 81 12/10/16 01:00 80 12/10/16 00:00 80 12/09/16 23:40 97.8 82 16 112/68 (83) 93 12/09/16 23:00 86 12/09/16 22:00 88 12/09/16 21:00 80 12/09/16 20:00 84 12/09/16 19:55 97.5 87 18 128/87 (101) 99 12/09/16 19:55 99 Room Air 12/09/16 19:00 83 12/09/16 18:06 85 12/09/16 17:22 84 12/09/16 16:26 83 12/09/16 15:33 97.4 82 18 108/73 (85) 98 12/09/16 15:33 82 12/09/16 14:02 80 12/09/16 12:03 88 12/09/16 11:40 97.1 81 18 111/66 (81) 98 12/09/16 11:40 81 12/09/16 09:55 89 I/O 12/09/16 12/09/16 12/09/16 12/10/16 12/10/16 12/10/16 07:00 15:00 23:00 07:00 15:00 23:00 Intake Total 240 ml 960 ml 240 ml Output Total 2225 ml 1350 ml 1950 ml Balance -1985 ml -390 ml -1710 ml Intake Oral 240 ml 960 ml 240 ml Output Urine Total 2225 ml 1350 ml 1950 ml # Bowel Movements 3 Physical Exam GENERAL: Well-nourished, well-developed patient. SKIN: Warm and dry. HEAD: Normocephalic. EYES: No scleral icterus. No injection or drainage. NECK: Supple, trachea midline. No JVD or lymphadenopathy. CARDIOVASCULAR: Regular rate and rhythm without murmurs, gallops, or rubs. RESPIRATORY: Breath sounds equal bilaterally. No accessory muscle use. GASTROINTESTINAL: Abdomen soft, non-tender, nondistended. EXTREMITIES: No cyanosis, or edema. NEUROLOGICAL: Awake, alert, and oriented x 3. Non-focal. Laboratory Laboratory Tests Test 12/09/16 17:56 12/10/16 00:48 12/10/16 07:13 12/10/16 08:13 Activated Partial Thromboplast Time 34.5 SEC 36.6 SEC Imaging Last Impressions Lower Extremity Ultrasound 12/07/16 0831 Signed Impressions: Service Date/Time: Wednesday, December 07, 2016 10:32 - CONCLUSION: Normal examination. Favian Balbuena MD Chest X-Ray 12/07/16 0655 Signed Impressions: Service Date/Time: Wednesday, December 07, 2016 07:10 - CONCLUSION: Small bilateral pleural effusions and bilateral alveolar and interstitial infiltrates. Favian Balbuena MD Assessment and Plan Problem List: (1) CAD (coronary artery disease) ICD Codes: I25.10 - Atherosclerotic heart disease of [place] coronary artery without angina pectoris Plan: Followed by Dr. Foreman. Patient remains on heparin IV drip. (2) Cardiomyopathy ICD Codes: I42.9 - Cardiomyopathy, unspecified Plan: Stable on Entresto and carvedilol. Pending fitting for life vest prior to discharge home. Repeat echo in 60-90 days per my discussion with Dr. Kaur. (3) CHF (congestive heart failure) ICD Codes: I50.9 - Heart failure, unspecified Status: Acute Plan: EF 20-25%. Medications optimized. Life vest fitting is pending. Dietary education completed. All questions answered. (4) Atrial fibrillation with RVR ICD Codes: I48.91 - Unspecified atrial fibrillation Plan: Sinus rhythm on telemetry at this evaluation. (5) Dyspnea ICD Codes: R06.00 - Dyspnea, unspecified Plan: Stable, improved. Ambulatory in the room without dyspnea. Problem Qualifiers (1) Cardiomyopathy: Qualified Codes: I42.9 - Cardiomyopathy, unspecified (2) CHF (congestive heart failure): Mary Jo Bedoya Dec 10, 2016 09:11
[2016-12-10 09:23] LABS: ANION GAP 11 MEQ/L (5-15); BICARBONATE 27.5 MEQ/L (21.0-32.0); BLOOD UREA NITROGEN 21 MG/DL (7-18); CHLORIDE 96 MEQ/L (98-107); GLOMERULAR FILTRATION RATE 60 ML/MIN (>89); MAGNESIUM 1.5 MG/DL (1.5-2.5); POTASSIUM 3.7 MEQ/L (3.5-5.1); SODIUM (NA) 134 MEQ/L (136-145)
[2016-12-10] MEDS: BUMETANIDE 1 MG TAB PO SCH (09:37)
[2016-12-10] MEDS: ASPIRIN 81 MG CHEW TAB PO SCH (09:38)
[2016-12-10] MEDS: PRASUGREL 10 MG TAB PO SCH (09:38)
[2016-12-10] MEDS: CARVEDILOL 12.5 MG TAB PO SCH (09:40)
[2016-12-10] MEDS: SPIRONOLACTONE 50 MG TAB PO SCH (09:46)
[2016-12-10] MEDS ORDERED: MAGNESIUM OXIDE 400 MG TAB PO ONE (10:00)
--- NOTE | 2016-12-10 10:18 | HHI.PR ---
Subjective Remarks Follow-up non-ST elevation [place]/atrial fibrillation with RVR/acute systolic CHF 12/08/16-patient seen and examined, complains of orthopnea at night home however during the day patient reported improvement of symptom of shortness of breath. Denies any chest pain. 12/09/16-patient seen and examined, reports improvement of shortness of breath and denies any chest pain. States, he had a good night sleep. Case discussed with both Dr. Kaur and Dr. Foreman. Patient will need LifeVest and no longer transferred to [facility] for heart transplantation evaluation 12/10/16-patient seen and examined, he was ambulated without any complaint of shortness of breath. Denies any chest pain or heart palpitation. Still On heparin Objective Vitals Vital Signs Date Time Temp Pulse Resp B/P (MAP) Pulse Ox O2 Delivery O2 Flow Rate FiO2 12/10/16 06:02 87 12/10/16 05:00 77 12/10/16 04:00 75 12/10/16 03:30 97.6 84 16 116/69 (85) 95 12/10/16 03:00 82 12/10/16 02:05 81 12/10/16 01:00 80 12/10/16 00:00 80 12/09/16 23:40 97.8 82 16 112/68 (83) 93 12/09/16 23:00 86 12/09/16 22:00 88 12/09/16 21:00 80 12/09/16 20:00 84 12/09/16 19:55 97.5 87 18 128/87 (101) 99 12/09/16 19:55 99 Room Air 12/09/16 19:00 83 12/09/16 18:06 85 12/09/16 17:22 84 12/09/16 16:26 83 12/09/16 15:33 97.4 82 18 108/73 (85) 98 12/09/16 15:33 82 12/09/16 14:02 80 12/09/16 12:03 88 12/09/16 11:40 97.1 81 18 111/66 (81) 98 12/09/16 11:40 81 I/O 12/09/16 12/09/16 12/09/16 12/10/16 12/10/16 12/10/16 07:00 15:00 23:00 07:00 15:00 23:00 Intake Total 240 ml 960 ml 240 ml Output Total 2225 ml 1350 ml 1950 ml Balance -1985 ml -390 ml -1710 ml Intake Oral 240 ml 960 ml 240 ml Output Urine Total 2225 ml 1350 ml 1950 ml # Bowel Movements 3 Result Diagram: 12/10/1681212/10/16812 Objective Remarks GENERAL: NAD SKIN: Warm and dry. HEAD: Normocephalic. EYES: No scleral icterus. No injection or drainage. NECK: Supple, trachea midline. No JVD or lymphadenopathy. CARDIOVASCULAR: Irregular Regular rate and rhythm without murmurs, gallops, or rubs. RESPIRATORY: Breath sounds equal bilaterally. No accessory muscle use. GASTROINTESTINAL: Abdomen soft, non-tender, nondistended. MUSCULOSKELETAL: No cyanosis, or edema. BACK: Nontender without obvious deformity. No CVA tenderness. A/P Problem List: (1) Non-ST elevation [place] (NSTEMI) ICD Code: I21.4 - Non-ST elevation (NSTEMI) myocardial infarction (2) Acute decompensated heart failure ICD Code: I50.9 - Heart failure, unspecified (3) Atrial fibrillation with RVR ICD Code: I48.91 - Unspecified atrial fibrillation (4) Acute systolic congestive heart failure ICD Code: I50.21 - Acute systolic (congestive) heart failure Assessment and Plan 56-year-old man with Non-ST elevation [place] Cardiology consultation appreciated Status post emergent LHC with cardiac x 1 Continue current treatment including Aspirin, Effient, Lipitor, Aldactone Coreg Will need LifeVest 3 today 12/10/16 prior to discharge Atrial fibrillation with RVR Currently on heparin drip; diltiazem drip was discontinued Continue with Coreg12.5 mg twice a day 2-D echo 20 25% Acute Systolic Compensated congestive heart failure 2-D echo 20 25% Patient currently on Bumex 1 mg PO twice a day Currently on Aldactone, Coreg as well as Entresto 12/10/16 Will need LifeVest hopefully today Hypokalemia Resolved with replacement Bilateral lower extremity edema Doppler ruled out DVT Secondary to above heart failure Diabetes type 2 A1c pending Continue Medium sliding scale insulin Continue metformin and Januvia Hypothyroidism On Synthroid DVT prophylaxis: Zacarias Cespedes MD Dec 10, 2016 10:18
[2016-12-10] MEDS ORDERED: CARV12.5 PO (10:24)
[2016-12-10] MEDS ORDERED: ALDA50TA2 PO (10:24)
[2016-12-10] MEDS ORDERED: BUME1TAB PO (10:24)
[2016-12-10] MEDS ORDERED: MAGN400T3 PO (10:24)
[2016-12-10] MEDS ORDERED: PRAS10TA PO (10:24)
[2016-12-10] MEDS ORDERED: SACU1TAB7 PO (10:24)
[2016-12-10] MEDS: MAGNESIUM SULFATE 1 GM PREMIX 100 ML IV SCH ×2 (10:26→11:51)
--- NOTE | 2016-12-10 12:31 | PD.CARD.PN ---
Subjective Subjective Remarks feels much better Objective Vital Signs / I&O Vital Signs Date Time Temp Pulse Resp B/P (MAP) Pulse Ox O2 Delivery O2 Flow Rate FiO2 12/10/16 06:02 87 12/10/16 05:00 77 12/10/16 04:00 75 12/10/16 03:30 97.6 84 16 116/69 (85) 95 12/10/16 03:00 82 12/10/16 02:05 81 12/10/16 01:00 80 12/10/16 00:00 80 12/09/16 23:40 97.8 82 16 112/68 (83) 93 12/09/16 23:00 86 12/09/16 22:00 88 12/09/16 21:00 80 12/09/16 20:00 84 12/09/16 19:55 97.5 87 18 128/87 (101) 99 12/09/16 19:55 99 Room Air 12/09/16 19:00 83 12/09/16 18:06 85 12/09/16 17:22 84 12/09/16 16:26 83 12/09/16 15:33 97.4 82 18 108/73 (85) 98 12/09/16 15:33 82 12/09/16 14:02 80 I/O 12/09/16 12/09/16 12/09/16 12/10/16 12/10/16 12/10/16 07:00 15:00 23:00 07:00 15:00 23:00 Intake Total 240 ml 960 ml 240 ml Output Total 2225 ml 1350 ml 1950 ml Balance -1985 ml -390 ml -1710 ml Intake Oral 240 ml 960 ml 240 ml Output Urine Total 2225 ml 1350 ml 1950 ml # Bowel Movements 3 Physical Exam GENERAL: SKIN: Warm and dry. HEAD: Normocephalic. EYES: No scleral icterus. No injection or drainage. NECK: Supple, trachea midline. No JVD or lymphadenopathy. CARDIOVASCULAR: Regular rate and rhythm without murmurs, gallops, or rubs. RESPIRATORY: Breath sounds equal bilaterally. No accessory muscle use. GASTROINTESTINAL: Abdomen soft, non-tender, nondistended. MUSCULOSKELETAL: No cyanosis, or edema. BACK: Nontender without obvious deformity. No CVA tenderness. Laboratory Laboratory Tests Test 12/09/16 17:56 12/10/16 00:48 12/10/16 07:13 12/10/16 08:13 Activated Partial Thromboplast Time 34.5 SEC 36.6 SEC 36.9 SEC White Blood Count 7.7 TH/MM3 Red Blood Count 4.90 MIL/MM3 Hemoglobin 16.9 GM/DL Hematocrit 48.0 % Mean Corpuscular Volume 98.0 FL Mean Corpuscular Hemoglobin 34.6 PG Mean Corpuscular Hemoglobin Concent 35.3 % Red Cell Distribution Width 14.1 % Platelet Count 224 TH/MM3 Mean Platelet Volume 9.2 FL Blood Urea Nitrogen 21 MG/DL Creatinine 1.25 MG/DL Random Glucose 290 MG/DL Calcium Level 9.1 MG/DL Magnesium Level 1.5 MG/DL Sodium Level 134 MEQ/L Potassium Level 3.7 MEQ/L Chloride Level 96 MEQ/L Carbon Dioxide Level 27.5 MEQ/L Anion Gap 11 MEQ/L Estimat Glomerular Filtration Rate 60 ML/MIN B-Type Natriuretic Peptide 447 PG/ML Assessment and Plan Problem List: (1) CAD (coronary artery disease) ICD Codes: I25.10 - Atherosclerotic heart disease of [place] coronary artery without angina pectoris (2) Cardiomyopathy ICD Codes: I42.9 - Cardiomyopathy, unspecified (3) CHF (congestive heart failure) ICD Codes: I50.9 - Heart failure, unspecified Status: Acute (4) Atrial fibrillation with RVR ICD Codes: I48.91 - Unspecified atrial fibrillation (5) Dyspnea ICD Codes: R06.00 - Dyspnea, unspecified Assessment and Plan 1.) CAD - cough resolved s/p pci lcx, continue aspirin, effient, lipitor 2.) Cardiomyopathy - some clinical improvement, may be failing omt, cardizem dc' d, continue coreg 25 mg bid, entresto, bumex, increase aldactone 50 mg bid, d/w [facility] heart transplant yesterday, [place] [place] [place] unless patient fails inpatient omt, f/u rec Dr Kaur for biv /icd eval, f/u bmp/bnp, 3.) PAF - in nsr, continue heparin, dapt for now, rec coumadin or dapt if ok with Dr Kaur, d/w Nurse, Neelima, @ the bedside; explained to patient that noac are irreversable and can lead to life threatening bleeding or delay emergency surgery. patient understands Problem Qualifiers (1) Cardiomyopathy: Qualified Codes: I42.9 - Cardiomyopathy, unspecified (2) CHF (congestive heart failure): Kaleb Foreman MD Dec 10, 2016 12:30
[2016-12-10] MEDS ORDERED: GLIP10TA6 PO (15:00)
[2016-12-10] MEDS ORDERED: APIX5TAB PO (15:04)
--- NOTE | 2016-12-10 15:05 | HHI.DS ---
Discharge Summary Admission Date Dec 07, 2016 at 08:29 Discharge Date: Dec 10, 2016 Admitting Diagnosis new onset CHF/elevated troponin (1) Non-ST elevation DC (NSTEMI) ICD Code: I21.4 - Non-ST elevation (NSTEMI) myocardial infarction (2) Acute decompensated heart failure ICD Code: I50.9 - Heart failure, unspecified (3) Atrial fibrillation with RVR ICD Code: I48.91 - Unspecified atrial fibrillation (4) Acute systolic congestive heart failure ICD Code: I50.21 - Acute systolic (congestive) heart failure Procedures none Brief History - From Admission 56-year-old male with a history of CAD, status post CABG in 2001 the emergency department for evaluation of worsening abdominal pain and acute onset of bilateral lower extremity edema overnight. Patient states for a week has been having epigastric pain along with some shortness of breath associated sometimes with chest pain, for which she was seen by his PCP and was prescribed Z-Darius which patient completed on Wednesday. However last night patient has bilateral lower extremity edema along with severe shortness of breath. He denies any GI bleed. In ED patient was found to have elevated troponin I for which cardiology was consulted and he underwent emergent left heart catheterization CBC/BMP: 12/10/16 0813 12/10/16 0813 Significant Findings Laboratory Tests Test 12/07/16 21:43 12/08/16 04:55 12/08/16 06:20 12/08/16 14:46 Troponin I 0.41 NG/ML (0.02-0.05) Mean Corpuscular Hemoglobin 34.3 PG (27.0-34.0) Monocytes (%) (Auto) 9.0 % (0.0-8.0) Eosinophils (%) (Auto) 4.4 % (0.0-4.0) Blood Urea Nitrogen 20 MG/DL (7-18) Random Glucose 219 MG/DL (74-106) Potassium Level 3.3 MEQ/L (3.5-5.1) Estimat Glomerular Filtration Rate 69 ML/MIN (>89) B-Type Natriuretic Peptide 569 PG/ML (0-100) HDL Cholesterol 30.1 MG/DL (40.0-60.0) Activated Partial Thromboplast Time 31.8 SEC (24.3-30.1) Test 12/08/16 15:00 12/08/16 22:26 12/09/16 05:55 12/09/16 17:56 Activated Partial Thromboplast Time 32.3 SEC (24.3-30.1) 33.4 SEC (24.3-30.1) 34.5 SEC (24.3-30.1) Random Glucose 242 MG/DL (74-106) Chloride Level 97 MEQ/L (98-107) Estimat Glomerular Filtration Rate 73 ML/MIN (>89) B-Type Natriuretic Peptide 539 PG/ML (0-100) Digoxin Level 0.6 NG/ML (0.8-2.0) Test 12/10/16 00:48 12/10/16 07:13 12/10/16 08:13 Activated Partial Thromboplast Time 36.6 SEC (24.3-30.1) 36.9 SEC (24.3-30.1) Mean Corpuscular Hemoglobin 34.6 PG (27.0-34.0) Blood Urea Nitrogen 21 MG/DL (7-18) Random Glucose 290 MG/DL (74-106) Sodium Level 134 MEQ/L (136-145) Chloride Level 96 MEQ/L (98-107) Estimat Glomerular Filtration Rate 60 ML/MIN (>89) B-Type Natriuretic Peptide 447 PG/ML (0-100) Imaging Last Impressions Lower Extremity Ultrasound 12/07/16 0831 Signed Impressions: Service Date/Time: Wednesday, December 07, 2016 10:32 - CONCLUSION: Normal examination. Favian Balbuena MD Chest X-Ray 12/07/16 0655 Signed Impressions: Service Date/Time: Wednesday, December 07, 2016 07:10 - CONCLUSION: Small bilateral pleural effusions and bilateral alveolar and interstitial infiltrates. Favian Balbuena MD PE at Discharge GENERAL: NAD SKIN: Warm and dry. HEAD: Normocephalic. EYES: No scleral icterus. No injection or drainage. NECK: Supple, trachea midline. No JVD or lymphadenopathy. CARDIOVASCULAR: Irregular Regular rate and rhythm without murmurs, gallops, or rubs. RESPIRATORY: Breath sounds equal bilaterally. No accessory muscle use. GASTROINTESTINAL: Abdomen soft, non-tender, nondistended. MUSCULOSKELETAL: No cyanosis, or edema. BACK: Nontender without obvious deformity. No CVA tenderness. Hospital Course Patient was admitted secondary to non-ST elevation DC for which cardiology was consulted and he underwent an emergent left heart catheterization with cardiac stent placed. Treated with Effient, heparin. On admission he was also found to be in A. fib with RVR and was initially started on Cardizem drip, however this was switched to by mouth Coreg. Secondary to 2-D echo with EF of 20-25%, field operations supervisor was consulted and patient had LifeVest placed on 12/10/16. Due to acute systolic compensated congestive heart failure patient was started on Entresto. Prior to discharge, all drips were discontinue. Patient was continued on treatment for diabetes. PT was consulted. Prior to discharge , patient's condition improved and vital remained stable. Pt Condition on Discharge: Stable Discharge Disposition: Discharge Home Discharge Time: > 30 minutes Discharge Instructions DIET: Follow Instructions for: Diabetic Diet Activities you can perform: Regular-No Restrictions Follow up Referrals: Cardiology PCP Follow-up - 1 Week New Medications: Apixaban (Eliquis) 5 Mg Tab 5 MG PO BID for Prevent Blood Clot, #60 TAB Bumetanide (Bumetanide) 1 Mg Tab 1 MG PO BID@,18 for Prevent Heart Failure, #60 TAB Carvedilol (Coreg) 12.5 Mg Tab 25 MG PO Q12HR for Blood Pressure Management, #60 TAB Magnesium Oxide (Magnesium Oxide) 400 Mg Tab 400 MG PO Q12H for Electrolyte Replacement, #60 TAB Prasugrel (Effient) 10 Mg Tab 10 MG PO DAILY for Prevent Blood Clot, #30 TAB Sacubitril-Valsartan (Entresto) 49-51 Mg Tab 1 TAB PO BID for Prevent Heart Failure, #60 TAB 3 Refills Spironolactone (Aldactone) 50 Mg Tab 50 MG PO BID@,18 for Prevent Heart Failure, #60 TAB 3 Refills Continued Medications: Levothyroxine (Synthroid) 75 Mcg Tab 75 MCG PO DAILY for Thyroid, #30 TAB 0 Refills Metformin (Metformin) 1,000 Mg Tab 1000 MG PO DAILY@0600 for Blood Sugar Management, #30 TAB 0 Refills With a meal Metformin (Metformin) 1,000 Mg Tab 1500 MG PO DAILY@1600 for Blood Sugar Management, #30 TAB 0 Refills With a meal Simvastatin (Simvastatin) 40 Mg Tab 40 MG PO HS for Cholesterol Management, #30 TAB 0 Refills Sitagliptin (Januvia) 100 Mg Tab 100 MG PO DAILY for Blood Sugar Management, #30 TAB 0 Refills Discontinued Medications: Aspirin (Aspirin) 325 Mg Tab 325 MG PO DAILY, #30 TAB 0 Refills Ramipril (Ramipril) 5 Mg Cap 5 MG PO DAILY, #30 CAP 0 Refills Zacarias Shultz MD Dec 10, 2016 15:05
[2016-12-10 16:24] LABS: HEMOGLOBIN A1a 0.7 %; HEMOGLOBIN A1b 1.9 %; HEMOGLOBIN Ao 81.6 %; HEMOGLOBIN LA1C 3.1 %; HEMOGLOBIN P3 4.2 %
[2016-12-10] MEDS ORDERED: APIXABAN 5 MG TABLET PO SCH (21:00)
[2016-12-10] MEDS ORDERED: MAGNESIUM OXIDE 400 MG TAB PO SCH (23:00)
== END 2016-12-10 15:30 | disposition home or self-care (01) | DRG 248 ==
LOC: PHED 06:16 → PHEDA 08:29 → HCIN 12:12
PROVIDERS: ADMIT Hospitalist; ATTEND Hospitalist
PROC: 02703DZ Dilation of Coronary Artery, One Artery with Intraluminal Device, Percutaneous Approach (ICD-10-PCS; principal; 2016-12-07)
PROC: B2131ZZ Fluoroscopy of Multiple Coronary Artery Bypass Grafts using Low Osmolar Contrast (ICD-10-PCS; 2016-12-07)
PROC: B2181ZZ Fluoroscopy of Left Internal Mammary Bypass Graft using Low Osmolar Contrast (ICD-10-PCS; 2016-12-07)
PROC: B2111ZZ Fluoroscopy of Multiple Coronary Arteries using Low Osmolar Contrast (ICD-10-PCS; 2016-12-07)
PROC: B2151ZZ Fluoroscopy of Left Heart using Low Osmolar Contrast (ICD-10-PCS; 2016-12-07)
PROC: 4A023N8 Measurement of Cardiac Sampling and Pressure, Bilateral, Percutaneous Approach (ICD-10-PCS; 2016-12-07)
DX: I21.4 Non-ST elevation (NSTEMI) myocardial infarction (principal); I50.21 Acute systolic (congestive) heart failure; I42.9 Cardiomyopathy, unspecified; T82.857A Stenosis of other cardiac prosthetic devices, implants and grafts, initial encounter; E11.65 Type 2 diabetes mellitus with hyperglycemia; D75.1 Secondary polycythemia; I11.0 Hypertensive heart disease with heart failure; I25.118 Atherosclerotic heart disease of native coronary artery with other forms of angina pectoris; E03.9 Hypothyroidism, unspecified; E78.5 Hyperlipidemia, unspecified; Y83.8 Other surgical procedures as the cause of abnormal reaction of the patient, or of later complication, without mention of misadventure at the time of the procedure; Y92.9 Unspecified place or not applicable; Y71.3 Surgical instruments, materials and cardiovascular devices (including sutures) associated with adverse incidents; I48.0 Paroxysmal atrial fibrillation; E87.6 Hypokalemia
CPT/HCPCS: 71020; 80048; 80053; 80061; 80162; 81001; 82550; 82948; 83036; 83735; 83880; 84484; 85002; 85025; 85027; 85347; 85730; 87641; 92928; 93005; 93306; 93458; 93970; 96374; C1769; C1876; C1887; C1893; J1160; J1644; J1815; J1940; J2250; J3010; J3246; J3475; Q9967

== ENCOUNTER 2017-01-30 11:09 | Emergency (ER) | payer BC ==
[~2017-01-30] VITALS: Ht 180.3 cm; Wt 79.5 kg
[~2017-01-30 11:09] MED LIST: ALDA50TA2 PO; APIX5TAB PO; BUME1TAB PO; CARV12.5 PO; GLIP10TA6 PO; LEVO.075 PO; MAGN400T3 PO; METF1000 PO; PRAS10TA PO; SACU1TAB7 PO; SIMV40TA PO; SITA1TAB2 PO
[2017-01-30 11:21] VITALS: BP 117/63; PULSE 76; RESP 16; TEMP 97.5; O2SAT 98
[2017-01-30] MEDS ORDERED: ASPI81CH37 CHEW (11:39)
[2017-01-30] MEDS ORDERED: PLAV75TA29 PO (11:39)
[2017-01-30] MEDS ORDERED: SILV1CRE20 TOPICAL (12:05)
--- NOTE | 2017-01-30 12:06 | PD ---
HPI . Burn on left foot Chief Complaint: Skin Problem Time Seen by Provider: 11:36 Travel History International Travel<30 days: No Contact w/Intl Traveler<30days: No Traveled to known affect area: No History of Present Illness HPI 57-year-old male patient presents emergency department for evaluation of a second degree burn he sustained on the dorsal aspect of his left foot 2 weeks ago. Patient states he was making caramel syrup and spilled a little bit on his foot which caused the burn. The largest burn is on the left foot on the lateral aspect of the medial mid foot which measures 2 cm 1 cm. The patient states that burn blistered up and it just popped a couple days ago. After the blister popped is when the pain started that burn. There is one satellite blister that is significantly smaller 0.5 cm 1 cm on the left foot proximal to the base of the third digit. The patient has an extensive medical history including diabetes, cardiac disease and renal failure. The patient states the reason he came is because the burn are starting to become more painful. The foot is neurovascularly intact. The valenzuela appear to be healing appropriately. There is no signs or symptoms of infection at this time. Patient denies any fevers, chills, malaise. The patient states his sugars have been a little high lately but he is working with his assistant produce manager and primary care to keep them under control. This morning his blood sugar was 190. PFSH Past Medical History Hx Anticoagulant Therapy: Yes Autoimmune Disease: No Heart Rhythm Problems: Yes (pt has defibrillator vest) Cancer: No Cardiovascular Problems: Yes (htn on meds, chf, [place] with stents x 1 , bypass 5 vessels) High Cholesterol: Yes Chest Pain: No Congestive Heart Failure: Yes Coronary Artery Disease: Yes Diabetes: Yes (type 2) Patient Takes Glucophage: Yes Diminished Hearing: No Endocrine: No Genitourinary: No Hypertension: Yes Immune Disorder: No Musculoskeletal: No Neurologic: No Psychiatric: No Reproductive: No Respiratory: No Thyroid Disease: Yes Tetanus Vaccination: Unknown Influenza Vaccination: No Past Surgical History Abdominal Surgery: No Cardiac Surgery: Yes (cabg) Coronary Artery Bypass Graft: Yes Coronary Stent: Yes Ear Surgery: No Endocrine Surgery: No Eye Surgery: No Genitourinary Surgery: Yes (vasectomy) Gynecologic Surgery: No Oral Surgery: Yes (tonsil) Thoracic Surgery: No Social History Alcohol Use: No Tobacco Use: No Substance Use: No Allergies-Medications (Allergen,Severity, Reaction): Coded Allergies: gentamicin (Verified Allergy, Intermediate, Hives, 01/30/17) Reported Meds & Prescriptions Reported Meds & Active Scripts Active Eliquis (Apixaban) 5 Mg Tab 5 Mg PO BID Magnesium Oxide 400 Mg Tab 400 Mg PO Q12H Aldactone (Spironolactone) 50 Mg Tab 50 Mg PO BID@09,18 Coreg (Carvedilol) 12.5 Mg Tab 25 Mg PO Q12HR Reported Aspirin Low Dose (Aspirin) 81 Mg Chew 81 Mg CHEW DAILY Plavix (Clopidogrel Bisulfate) 75 Mg Tab 75 Mg PO DAILY Glipizide 10 Mg Tab 10 Mg PO BIDAC Take 30 minutes before a meal Metformin (Metformin HCl) 1,000 Mg Tab 1,000 Mg PO DAILY@1600 With a meal Metformin (Metformin HCl) 1,000 Mg Tab 1,500 Mg PO DAILY@0600 With a meal Synthroid (Levothyroxine Sodium) 75 Mcg Tab 150 Mcg PO DAILY Simvastatin 40 Mg Tab 40 Mg PO HS Januvia (Sitagliptin Phosphate) 100 Mg Tab 100 Mg PO DAILY Review of Systems Except as stated in HPI: all other systems reviewed are Neg Physical Exam Narrative GENERAL: Well-nourished, well-developed 57-year-old male patient in no acute distress. Nontoxic appearing. SKIN: 2 cm 1 cm second degree burn on the lateral aspect of the left midfoot region. 0.5 cm 1 cm second-degree burn noted on the left foot proximal to the base of the third digit. Mild erythema surrounding the base of the valenzuela. No purulent drainage, foul odor noted. HEAD: Normocephalic. Atraumatic. EYES: No scleral icterus. No injection or drainage. NECK: Supple, trachea midline. No JVD or lymphadenopathy. CARDIOVASCULAR: Regular rate and rhythm without murmurs, gallops, or rubs. Pedal pulses +1 bilaterally. RESPIRATORY: Breath sounds equal bilaterally. No accessory muscle use. GASTROINTESTINAL: Abdomen soft, non-tender, nondistended. MUSCULOSKELETAL: No obvious deformity, cyanosis, or edema. Data Data Last Documented VS Vital Signs Date Time Temp Pulse Resp B/P (MAP) Pulse Ox O2 Delivery O2 Flow Rate FiO2 01/30/17 11:21 97.5 76 16 117/63 (81) 98 MDM Medical Decision Making Medical Screen Exam Complete: Yes Emergency Medical Condition: Yes Differential Diagnosis Differential diagnosis includes but not limited to wound, valenzuela, cellulitis Narrative Course 57-year-old male patient presents emergency department for evaluation of a second-degree burn he sustained to his left foot a couple weeks ago. The valenzuela were cleaned. Healing appropriately with no signs or symptoms of infection at this time. The patient is afebrile and reports that he has not spiked a fever at home. Patient has an extensive medical history and is working with his foreign service teacher and physical testing supervisor and assistant produce manager to regulate his blood sugar, kidney failure and arrhythmias. Patient denies any injury subsequent to the second-degree burn. No falls or traumas to the area. Patient is nontoxic appearing and the wounds look like they're healing appropriately. Patient will be discharged home with instructions to continue wound care, work to regulate blood sugar and given a prescription for Silvadene and instructions to return to the emergency Department with any worsening condition. The patient is stable at this time for discharge with appropriately healing valenzuela. Patient is thankful for care and agreeable to plan and states the reasons to return to the emergency department for further care. Diagnosis Primary Impression: Burn Referrals: Primary Care Physician Patient Instructions: General Instructions, Second Degree Burn (DC) Additional Instructions: Please return to emergency department with any signs or symptoms of infection or worsening infection. Follow up with your primary care provider. Keep wound clean and dry. Apply Silvadene daily. Med/Other Pt SpecificInfo: Prescription(s) given Scripts Silver Sulfadiazine Topical (Silvadene Topical) 1 % Cream 1 APPLIC TOPICAL DAILY for Wound Management, #400 GM 0 Refills Prov: Bita Mc 01/30/17 Disposition: 01 DISCHARGE HOME Condition: Stable Bita Mc Jan 30, 2017 12:06
[2017-01-30] MEDS ORDERED: SILVER SULFADIAZINE 1% CR 400 GM JAR TOPICAL ONE ×2 (12:15→12:30)
== END 2017-01-30 13:02 | disposition home or self-care (01) ==
LOC: PHEFT 11:09
DX: T25.222D Burn of second degree of left foot, subsequent encounter (principal); E11.22 Type 2 diabetes mellitus with diabetic chronic kidney disease; I13.0 Hypertensive heart and chronic kidney disease with heart failure and stage 1 through stage 4 chronic kidney disease, or unspecified chronic kidney disease; N18.9 Chronic kidney disease, unspecified; E78.00 Pure hypercholesterolemia, unspecified; I25.10 Atherosclerotic heart disease of native coronary artery without angina pectoris; E07.9 Disorder of thyroid, unspecified; X12.XXXA Contact with other hot fluids, initial encounter
CPT/HCPCS: 16020

== ENCOUNTER 2017-03-17 06:05 | Day surgery (SDC) | payer BC ==
[~2017-03-17] VITALS: Ht 180.3 cm; Wt 82.0 kg
[~2017-03-17 06:05] MED LIST changes: +ASPI81CH6 CHEW; -BUME1TAB PO; +PLAV75TA29 PO; -PRAS10TA PO; -SACU1TAB7 PO; +SILV1CRE20 TOPICAL
[2017-03-17 06:55] VITALS: BP 128/75; PULSE 60; RESP 18; TEMP 97.6; O2SAT 99
[2017-03-17] MEDS ORDERED: ceFAZolin 2 GM PREMIX 50 ML IV SCH ×3 (07:00→16:00)
[2017-03-17] MEDS ORDERED: VANCOMYCIN 1000 MG/NS 250 ML IV SCH ×2 (07:00)
[2017-03-17] MEDS ORDERED: NS 1000 ML IV SCH (07:00)
[2017-03-17] MEDS ORDERED: CHLORHEXIDINE GLUCONATE 2 % 1 PACK (2 CLOTHS) TOPICAL SCH (07:00)
[2017-03-17] MEDS ORDERED: MUPIROCIN 2% OINT 1 APPLIC/GM SYR NASAL SCH (07:00)
[2017-03-17] MEDS ORDERED: POVIDONE IODINE 5% (ANTISEPSIS KIT) 4 APPLICATIONS EACH NARE SCH (07:00)
[2017-03-17] MEDS ORDERED: LORazepam 1 MG TAB SL SCH (07:00)
[2017-03-17] MEDS ORDERED: VITA200013 PO (07:05)
[2017-03-17] MEDS ORDERED: LACTATED RINGER'S 1000 ML IV PRN (07:15)
[2017-03-17] MEDS ORDERED: POVIDONE IODINE 5% (ANTISEPSIS KIT) 4 APPLICATIONS EACH NARE PRN (07:15)
[2017-03-17] MEDS ORDERED: METOPROLOL TARTRATE 25 MG TAB PO PRN (07:15)
[2017-03-17] MEDS ORDERED: INSULIN HUMAN REGULAR 1,000 UNITS/10 ML VIAL SQ PRN (07:15)
[2017-03-17] MEDS ORDERED: CHLORHEXIDINE GLUCONATE 2 % 1 PACK (2 CLOTHS) TOPICAL PRN (07:15)
[2017-03-17] MEDS ORDERED: SODIUM CHLORID 0.9% 500 ML IV PRN (07:15)
[2017-03-17 07:31] LABS: AUTOMATED NEUTROPHIL # 4.4 TH/MM3 (1.8-7.7); BASOPHIL # 0.1 TH/MM3 (0-0.2); BASOPHIL % 0.8 % (0.0-2.0); EOSINOPHIL # 0.3 TH/MM3 (0-0.4); EOSINOPHIL % 3.7 % (0.0-4.0); HEMATOCRIT 36.1 % (39.0-51.0); HEMO FLAGS DIFF FINAL; LYMPH % 24.2 % (9.0-44.0); LYMPHOCYTE # 1.7 TH/MM3 (1.0-4.8); MEAN CELL VOLUME 98.4 FL (80.0-100.0); MEAN CORPUSCULAR HEMOGLOBIN 34.8 PG (27.0-34.0); MEAN CORPUSCULAR HGB CONC 35.4 % (32.0-36.0); MONO % 9.6 % (0.0-8.0); NEUT % 61.7 % (16.0-70.0); PLATELET COUNT 151 TH/MM3 (150-450); RED BLOOD COUNT 3.67 MIL/MM3 (4.50-5.90); RED CELL DISTRIBUTION WIDTH 14.4 % (11.6-17.2); WHITE BLOOD COUNT 7.2 TH/MM3 (4.0-11.0)
[2017-03-17 07:36] LABS: PROTHROMBIN TIME - PATIENT 11.2 SEC (9.8-11.6)
[2017-03-17 07:37] LABS: APTT (PATIENT) 24.9 SEC (24.3-30.1); INTERNATIONAL NORMALIZED RATIO 1.1 RATIO
[2017-03-17 07:49] LABS: BICARBONATE 25.7 MEQ/L (21.0-32.0); POTASSIUM 4.2 MEQ/L (3.5-5.1)
[2017-03-17] MEDS ORDERED: VANCOMYCIN 500 MG VIAL ONE (08:17)
[2017-03-17] MEDS ORDERED: LIDOCAINE HCL 2% 50 ML VIAL ONE (08:17)
--- NOTE | 2017-03-17 08:47 | PD.CARD ---
SINGLE CHAMBER DEFIB IMPLANT PROCEDURE DATE: Mar 17, 2017 NYHA Classification: Class II (Mild) Prevention: Primary Single Chamber Defib Implant PROCEDURE: Single chamber defibrillator implantation. INDICATIONS: Mr. Betancourt is a 57 -year-old male with hx of ischemic cardiomyopathy , congestive heart failure, ejection fraction 25%, coronary artery disease, who undergo defibrillator implantation for sudden prevention. The risks, the nature and the benefit of the procedure are clearly stated to him . Risks include pneumothorax, cardiac perforation, stroke and even . He understood and agreed to proceed. PROCEDURE: After written, informed consent was obtained, the patient was brought to the EP Lab where he was prepped and draped in the sterile fashion. Conscious sedation was initiated and maintained throughout the procedure by anesthesiologist. Once sedation was verified, the left infraclavicular area was anesthetized with 2% Xylocaine. Using modified Seldinger technique, the left subclavian vein was cannulated on one occasion and one guide wire was advanced. Then, using #11 blade scalpel, a 3-cm incision was made two fingerbreadths below left clavicle. This incision was then taken down to the deep fascial layer using Bovie cautery and blunt dissection. Into the inferomedial direction, a device pocket was dissected, then the wire was dissected into the pocket. A 2-0 Vicryl suture was placed around the wires to prevent bleeding. At this point, over the wire, the 9- Bulgarian dilator and introducer was advanced. As dilator and wire were removed, an active fixation right ventricular pacing, sensing and defibrillatory lead was advanced. After adequate pacing and sensing thresholds were obtained, the lead was secured in the pocket with #2 Ethibond suture. At that point, the pocket was copiously irrigated with antibiotic solution. The leads were connected to the generator and placed into the pocket. I did proceed with wound closure. The deep fascial layer was approximated with 2-0 Vicryl suture in a continuous fashion. The subcutaneous layer was approximated with 2-0 Vicryl suture in a continuous fashion. The subcuticular layer was approximated with 2-0 Vicryl suture in a continuous fashion. Dermabond adhesive was applied to the wound, followed by a sterile pressure dressing. There was no complication. The patient tolerated procedure. Blood loss minimal. 1. Implanted Hardware: The implanted defibrillator generator is a Mirego, model number [id number], serial number [id number]. The right ventricular pacing, sensing and defibrillatory lead is a [employer] model number 6935M-62, serial number [id number]. 2. Thresholds: The right ventricular pacing threshold in the bipolar mode was 0.9volts at 0.5 milliseconds, lead impedance 681 ohms and R-wave at 6.2 mV. The right ventricular defibrillatory threshold was not measured. 3. Settings: The device set in VVI 40 defibrillatory portion for two zones, one zone for ventricular tachycardia between 180 and 250 beats per minute. Initial therapy consists of one burst of ATP, one ramp, 81%, 10 pulse, 10 millisecond decremental, followed by 20, then 25 and all subsequent shocks at 35 joules defibrillatory shock, the second zone for ventricular fibrillation above 250 beats per minute, first therapy at 25 and all subsequent shocks at 35 joules defibrillatory shock. CONCLUSIONS: Successful defibrillator implantation. COMMENT AND RECOMMENDATIONS: The patient will be transferred to the telemetry unit, will be observed and when stable can be discharged home. Lucho Kaur MD Mar 17, 2017 08:47
[2017-03-17] MEDS ORDERED: SODIUM CHLORIDE 0.9% FLUSH 10 ML FLUSH IV FLUSH SCH (09:00)
[2017-03-17] MEDS ORDERED: SODIUM CHLORIDE 0.9% FLUSH 10 ML FLUSH IV FLUSH PRN (09:00)
[2017-03-17] MEDS ORDERED: TEMAZEPAM 15 MG CAP PO PRN (09:00)
[2017-03-17] MEDS ORDERED: ONDANSETRON HCL 4 MG/2 ML VIAL IV PUSH PRN (09:00)
[2017-03-17] MEDS ORDERED: ACETAMINOPHEN/CODEINE 300 MG/30 MG TAB PO PRN (09:00)
--- NOTE | 2017-03-17 09:11 | CATHPROC ---
[facility] HIS Report Study Information Study Number Admission Scheduled Start Study Start [id number] Mar 17 2017 6:05AM 03/17/2017 Mar 17 2017 7:57AM [facility] Cardiac Pacer/ICD Admit Source Facility Department Other [facility] - Code Inspector Physician and Clinical Staff Initial Lucho Claros Photovoltaic Installer Car Guzman RCIS(BS) Other cathlab, cathlab Other Anesthesia, PROGRAMMING EQUIPMENT OPERATOR Recorder Michelle Soria,RN Scrub Elvira Olmedo,HEALTH SERVICES DIRECTOR TECH2 Procedures Performed Procedure Lead Insertion Equipment Time Lube Attendant Description Size Mfg Part Number Used/Scraped DERMABOND, ADHESIVE SKIN [id number] 07:58 CORDIS/PACER * Used GLUE MINI *[id number]-1103 07:58 MEDLINE IND[employer] SUTURE, STRIP PLUS 1/2" * Used *[id number] 07:58 MEDLINE PACER MIGUEL, LIMB * 2530 *[id number] Used [id number] 07:58 MEDLINE PACER PACK, PACER CUSTOM * Used *[id number] 08:13 [employer] PACER SAFE SHEATH, FR9, 13CM FR 9 [id number] Used 08:28 Needle Sponge Count 2 2 Used 08:28 Needle Sponge Count 2 22 Used 08:28 Needle Sponge Count 20 200 Used SUTURE, 0 ETHIBOND [CT1] (CX21D), 8pk SUTURE, 2-0 VICRYL [CT1] ([id number]) SUTURE, 2-0 VICRYL [CT1] ([id number]) [id number] 07:58 [employer],WARM AIR CCL * Used *[id number] [facility] PAD, ELECTROSURGICAL 07:58 * [id number] *[id number] Used SURGICAL GROUNDING ORANGE 08:41 [employer]RON [employer] DEFIBRILLATOR, VISIA AF MRI VR VVEVVIR [id number] Used LEAD, SPRINT QUATTRO SECURE [id number] 08:36 [employer] 62CM Used S 62CM *[id number] 08:22 [employer] MONITOR, PACEMAKER\\ICD [id number] Used [id number] 07:58 [employer]. / * Used *[id number] Equipment Model, Serial, Lot Number and Expiration Data Description Model Number Serial Number Lot Number Expiration Date DEFIBRILLATOR, VISIA AF MRI VR [id number] 12-17-2017 LEAD, SPRINT QUATTRO SECURE S [id number] 01-07-2019 62CM History: Allergies Allergy Reaction gentamicin Hives History: Risk Factors Family History of Hypertension Dyslipidemia Previous IN Previous Heart Failure Premature CAD Yes Yes No No No Prior Valve Prior PCI Prior CABG Prior CABGDate Surgery No No Yes 12/04/2000 Cerebrovascular Peripheral Artery Chronic Lung On Dialysis Diabetes Diabetes Therapy Disease Disease Disease No No No No Yes Oral History: Symptoms/Diagnosis Selection Items Chest pain History: CV Disease Selection Items Known CAD History: Stress Tests Stress or Imaging Studies Performed No History: Other Disease Selection Items CAD HTN History: Other Current Smoker Method Quit Packs a Day Years Used Pack Years No Cigarettes 20 Years Ago 1 15 15 Labs Hgb (g/dl) Hct (%) WBC (l/cumm) Platelets (thousands) 11.60-17.00 35.00-51.00 4.00-11.00 150.00-450.00 12.8 36.1 7.2 151 Glucose (mg/dl) BUN (mg/dl) Creatinine (mg/dl) BUN:Creatinine (1:x) 74.00-106.00 7.00-18.00 0.50-1.30 10.00-20.00 193 33 1.6 20.6 Na (meq/l) K (meq/l) 136.00-145.00 3.50-5.10 138 4.2 INR (PTT:PT) 0.90-1.10 1.1 CPK-MB (ng/ML) 0.50-3.60 Not Drawn Medication Medication Total Dose (Bolus/Oral) Medication Total Dosage/Unit 2% XYLOCAINE 50 mL Medications (Bolus/Oral) Medication Time Given Dosage/Unit Administered By Reason 2% XYLOCAINE 03/17/2017 8:31:30 AM 50 mL Lucho Kaur 50 mL 2% XYLOCAINE given in lab by Lucho Kaur in Left shoulder via Subcutaneous. Medication (Drip) Medication Time Given Dosage/Unit Concentration/Unit Diluent (ml) Solution ANCEF 03/17/2017 8:20:00 AM 2 g 2 g ANCEF given in lab by Anesthesia PROGRAMMING EQUIPMENT OPERATOR in Right Forearm via Peripheral IV. Ordered by Fernando Kaur. IV Solutions 03/17/2017 7:57:01 AM 0 mL (IV) 500 NaCl .9 Patient arrived on IV Solutions given by cathlab, cathlab in Right Forearm via Peripheral IV. Pump/Dr ip Flow = 20 ml/hr using NaCl .9. Ordered by Lucho Kaur. VANCOMYCIN DRIP 03/17/2017 8:20:00 AM 1 g 1 g VANCOMYCIN DRIP given in lab by Anesthesia, PROGRAMMING EQUIPMENT OPERATOR in Left Wrist via Peripheral IV. Ordered by Lucho Alonzo. Initial Case Assessment Cardiovascular HR Rhythm Chest Pain 70 rd 0 Edema Present Skin color Skin None Normal Warm Dry Neurological State Oriented to time-place- Alert Moves all extremities person Respiration - General Respiration Rate SpO2 (%) (B/min) 15 99 Chronological Log Time Study Chronological Log 7:56:48 Patient arrived via Bed. 7:56:49 Patient Name, D.O.B, / Armband Verified By R.N. 7:56:49 Consent signed by the physician and the patient and verified by the Code Inspector staff. 7:56:50 Pre-op and post- op instructions given; patient acknowledges understanding of instructions . 7:56:52 Presedation assessment performed by Code Inspector RN. 7:56:53 Immediate Presedation assesment performed by physician. 7:56:54 Patient has been NPO for More than 6Hrs. 7:56:55 Skin Breakdown- none per patient 7:56:56 Patient Warmer Placed on the Table. 7:56:57 Disposable Defibrillator Pads Placed On Patient. 7:56:58 Adriana Prominences Protected 7:57:00 A # 20 IV was noted in the Forearm (right). Grade = 0 7:57:00 A # 20 IV was noted in the Wrist (left). Grade = 0 Patient arrived on IV Solutions given by cathlab, cathlab in Right Forearm via Peripheral IV. Pump/Drip Flow = 20 ml/hr 7:57:01 using NaCl .9. Ordered by Lucho Kaur. 7:57:02 History and physical on the chart or being dictated. 8:10:20 Anesthesia at bedside. Assumes care of patient. Assessment: Initial Case, HR=70 BPM, Rhythm=rd, Chest Pain=0, Edema=None, Color=Normal, Skin = Warm, Dry 8:11:19 Neurological: State=Alert, Ox3, VARMA Respiration: Resp=15 B/min, SpO2=99 % 8:12:46 Reference ECG taken 8:20:00 2 g ANCEF given in lab by Anesthesia, PROGRAMMING EQUIPMENT OPERATOR in Right Forearm via Peripheral IV. Ordered by Lucho Davis. 8:20:00 1 g VANCOMYCIN DRIP given in lab by Anesthesia, PROGRAMMING EQUIPMENT OPERATOR in Left Wrist via Peripheral IV. Ordere d by Lucho Kaur. 8:21:14 2% CHLORHEXIDINE GLUCONATE WASH AND NASAL SWIPE DONE PRIOR TO PROCEDURE. 8:21:21 Left arm and shoulder prepped with 2% chlorhexidine, and draped after with a 3 min. waiting time. 8:23:41 Bovie ground pad applied to: Right thigh 8:23:50 Table restraints applied according to hospital policy First Sponge And Instrument Count Done by Michelle Soria, ORLIN. 8:27:18 Hypo's: 2, Sponges: 20, Bovie/scratch: 2 Sutures: 10, Blades: 1, Instruments: 26, Syveck Patches: 0 Time Out. Correct patient, procedure, procedure equipment, site and side verified with physician present. Time 8:31:09 concurred by MD, individual staff and PROGRAMMING EQUIPMENT OPERATOR. Time Out #2 - Consents verified, patient in correct position, all results are labled and display ed, safety precautions 8:31:11 taken, antibiotics administered. Time out concurred by MD, individual staff and PROGRAMMING EQUIPMENT OPERATOR in procedur e 8:31:25 Case Start 8:31:30 50 mL 2% XYLOCAINE given in lab by Lucho Kaur in Left shoulder via Subcutaneous. 8:34:47 Vascular access was obtained in the Subclav. Vein (Lft. 8:34:55 Surgical Incision Made. 8:37:07 A pocket was created at the L Upper Chest. 8:37:17 A SAFE SHEATH, FR9, 13CM FR 9 was advanced into the Subclav. Vein (Lft using the Percutaneou s technique. 8:37:28 A LEAD, SPRINT QUATTRO SECURE S 62CM 62CM was inserted and positioned in the RV. 8:37:33 Lead placement verified under fluoroscopy 8:37:54 The RV lead impedance and threshold being tested. 8:38:44 The RV lead was sutured to the fascia. 8:40:13 A DEFIBRILLATOR, VISIA AF MRI VR VVEVVIR was connected and placed in the pocket. 8:40:54 Pocket flushed with antibiotic solution Second Sponge And Instrument Count Done by Lucho Kaur. 8:41:36 Hypo's: 2, Sponges: 20, Bovie/scratch: 2 Sutures: ~SUTURE~, Blades: 1, Instruments: ~INSTRU~, Syveck Patches: 0 8:42:44 The pocket was closed. The Final Sponge And Instrument Count Done by Lucho Kaur. 9:02:37 Hypo's: 2, Sponges: 20, Bovie/scratch: 2 Sutures: 11, Blades: 1, Instruments: 26, Syveck Patches: 0 9:02:50 Steri-strips and a sterile dressing applied to site. 9:03:00 Case End 9:03:02 Implant Procedure was performed. SC ICD ICD 9:03:18 A ICD Implant . (Single) 9:03:24 A sling was placed on the affected arm. 9:09:08 Patient moved to stretcher End Study - Contrast Media Used In Study Contrast Total Opened (mL) Total Used (mL) Total Wasted (mL) Unspecified 0 0 0 End Study - Maximum Contrast Load Max Contrast Load (mL) 256.3 End Study - Radiation Exposure Fluoro Time (minutes) 0.8 End Study - Patient Disposition Complications Transferred To Interventional Outcome No Code Inspector Holding successful
--- NOTE | 2017-03-17 09:46 | RADRPT ---
EXAM DATE/TIME: 03/17/2017 09:16 This report includes an Addendum and supersedes previous reports for this exam. [facility] COMPARISON: No previous studies available for comparison. INDICATIONS : Post ICD placement. MEDICAL HISTORY : Hypercholesterolemia. Hypertension. Thyroid disease. Coronary artery disease. Diabetes. SURGICAL HISTORY : CABG. ENCOUNTER: Initial ACUITY: 1 day PAIN SCORE: 0/10 LOCATION: Bilateral chest FINDINGS: A single view of the chest demonstrates the lungs to be symmetrically aerated without evidence of mas s, infiltrate or effusion. There is mild cardiomegaly and previous CABG. Left-sided defibrillator wit h a single intact lead. The cardiomediastinal contours are unremarkable. Osseous structures are inta ct. CONCLUSION: Left-sided defibrillator placement. No pneumothorax. Zacarias Figueroa MD on March 17, 2017 at 9: ADDENDUM: Conclusion should state NO pneumothorax. Zacarias Figueroa MD on March 17, 2017 at 11:46 Board Certified Radiologist. This report was verified electronically.
[2017-03-17] MEDS: ACETAMINOPHEN/CODEINE 300 MG/30 MG TAB PO PRN ×2 (14:27→18:39)
--- NOTE | 2017-03-17 15:01 | EKG ---
Date Performed: 03/17/2017 Time Performed: 07:06:10 PTAGE: 57 years EKG: --- Warning: Data quality may affect interpretation --- Sinus bradycardia Lead(s) unsuitabl e for analysis: V6 Possible inferior infarct - age undetermined Lateral T wave changes are nonspecifi c Abnormal ECG PREVIOUS TRACING : 12/08/2016 05.04 DOCTOR: Mal Figueroa Interpretating Date/Time 03/17/2017 14:59:42
[2017-03-17 16:00] VITALS: BP 145/88; PULSE 56; PULSE 67; RESP 18; TEMP 97.6; O2SAT 100
[2017-03-17 17:00] VITALS: BP 121/68; PULSE 57; RESP 18; TEMP 97.5; O2SAT 99
[2017-03-17] MEDS ORDERED: CEPH-460 PO (19:34)
[2017-03-17] MEDS ORDERED: HYDR-3366 PO (19:34)
== END 2017-03-17 20:48 | disposition home or self-care (01) ==
LOC: HDOC 06:05 → HDIC 06:05 → HCIS 15:45 → HDOC 20:48
PROVIDERS: ATTEND Internal Medicine Interventional Cardiology
DX: I11.0 Hypertensive heart disease with heart failure (principal); I50.9 Heart failure, unspecified; I25.5 Ischemic cardiomyopathy; R06.00 Dyspnea, unspecified; I48.91 Unspecified atrial fibrillation
CPT/HCPCS: 00530; 33249; 71010; 80048; 85025; 85610; 85730; 86850; 86900; 86901; 93005; C1722; C1777; J0690; J3370; J7030